=== PATIENT | male | born 1975 | race Caucasian/White ===

== ENCOUNTER 2017-08-27 00:27 | Inpatient (IN) | payer MEDICAID ==
[~2017-08-27] VITALS: Ht 182.9 cm; Wt 85.4 kg
[~2017-08-27 00:27] MED LIST: NOCURR
[2017-08-27] MEDS ORDERED: LISI1TAB11 PO (00:29)
[2017-08-27 00:58] LABS: BASOPHILS % (AUTO) 0.9 % (0.0-2.0); EOSINOPHILS % (AUTO) 2.8 % (1.0-6.0); HEMATOCRIT 22.4 % (41-53); HEMOGLOBIN 7.9 g/dL (13.5-17.5); LYMPHOCYTES # (AUTO) 1.5 K/uL (1.0-4.8); LYMPHOCYTES % (AUTO) 12.3 % (22.0-44.0); MEAN CORPUSCULAR HEMOGLOBIN 29.8 pg (26.0-34.0); MEAN CORPUSCULAR HGB CONC 35.4 G/dL (31.0-37.0); MEAN CORPUSCULAR VOLUME 84 fL (80-100); MONOCYTES # (AUTO) 0.7 K/uL (0.1-1.0); MONOCYTES % (AUTO) 5.6 % (2.0-9.0); NEUTROPHILS # (AUTO) 9.7 K/uL (1.8-7.7); NEUTROPHILS % (AUTO) 78.4 % (40.0-70.0); PLATELET COUNT (AUTO) 187 K/uL (150-450); RED BLOOD CELL COUNT(AUTO) 2.66 MIL/uL (4.50-5.90)
[2017-08-27 01:16] LABS: ALBUMIN 3.7 g/dL (3.4-5.0); BILIRUBIN,TOTAL 0.5 mg/dL (0.1-1.0); CALCIUM, TOTAL 6.1 mg/dL (8.8-10.5); POTASSIUM 3.6 mmol/L (3.5-5.1); TOTAL PROTEIN, SERUM 7.8 g/dL (6.4-8.2)
[2017-08-27] MEDS ORDERED: LORazepam 2 MG/ML VIAL IVP ONE (01:30)
[2017-08-27] MEDS ORDERED: KETOROLAC TROMETHAMINE 30 MG/ML VIAL IVP ONE (01:30)
[2017-08-27 01:36] LABS: CREATININE 38.72 mg/dL (0.60-1.30)
[2017-08-27] MEDS ORDERED: NITROGLYCERIN 2% (1 GM=INCH) PACKET TP ONE (01:45)
[2017-08-27] MEDS ORDERED: ASPIRIN 81 MG CHEWABLE TABLET PO ONE (01:45)
[2017-08-27 05:55] VITALS: BP 162/91
[2017-08-27 07:37] VITALS: BP 137/83
[2017-08-27] MEDS ORDERED: IPRATROPIUM BROMIDE 0.5 MG/2.5 ML NEB SOLUTION NEB PRN (08:45)
[2017-08-27] MEDS ORDERED: MAGNESIUM HYDROXIDE SUSPENSION 30 ML UDCUP PO PRN (08:45)
[2017-08-27] MEDS ORDERED: ZOLPIDEM TARTRATE 5 MG TABLET PO PRN (08:45)
[2017-08-27] MEDS ORDERED: ALBUTEROL SULFATE 2.5 MG/0.5 ML NEB SOLUTION NEB PRN (08:45)
[2017-08-27] MEDS ORDERED: MORPHINE SULFATE 2 MG/ML SYRINGE IVP PRN (08:45)
[2017-08-27] MEDS ORDERED: BISACODYL 10 MG RECTAL RECTAL SUPPOSITORY PR PRN (08:45)
[2017-08-27] MEDS ORDERED: ONDANSETRON HCL 4 MG/2 ML VIAL IVP PRN (08:45)
[2017-08-27] MEDS ORDERED: HYDROCODONE/ACETAMINOPHEN 5-325 MG TABLET PO PRN (08:45)
[2017-08-27] MEDS ORDERED: MORPHINE SULFATE 4 MG/ML SYRINGE IVP PRN (08:57)
[2017-08-27] MEDS ORDERED: PANTOPRAZOLE SODIUM 40 MG DR TABLET PO SCH (09:00)
[2017-08-27 09:30] LABS: BASOPHILS % (AUTO) 0.9 % (0.0-2.0); EOSINOPHILS % (AUTO) 1.5 % (1.0-6.0); HEMOGLOBIN 7.4 g/dL (13.5-17.5); LYMPHOCYTES # (AUTO) 0.9 K/uL (1.0-4.8); LYMPHOCYTES % (AUTO) 9.7 % (22.0-44.0); MEAN CORPUSCULAR HEMOGLOBIN 30.3 pg (26.0-34.0); MEAN CORPUSCULAR HGB CONC 35.9 G/dL (31.0-37.0); MEAN CORPUSCULAR VOLUME 84 fL (80-100); MONOCYTES # (AUTO) 0.4 K/uL (0.1-1.0); MONOCYTES % (AUTO) 4.3 % (2.0-9.0); NEUTROPHILS # (AUTO) 7.6 K/uL (1.8-7.7); NEUTROPHILS % (AUTO) 83.6 % (40.0-70.0); PLATELET COUNT (AUTO) 160 K/uL (150-450); RED BLOOD CELL COUNT(AUTO) 2.43 MIL/uL (4.50-5.90); RED CELL DISTRIBUTION WIDTH 12.1 % (11.5-14.5)
[2017-08-27 09:39] LABS: HEMATOCRIT 20.5 % (41-53); HEMOGLOBIN A1C 5.9 % (4.5-6.2)
[2017-08-27 10:06] LABS: ALBUMIN 3.5 g/dL (3.4-5.0); BILIRUBIN,TOTAL 0.6 mg/dL (0.1-1.0); CALCIUM, TOTAL 6.1 mg/dL (8.8-10.5); CREATINE KINASE MB 21.9 ng/mL (0-5); POTASSIUM 3.9 mmol/L (3.5-5.1); TOTAL PROTEIN, SERUM 7.4 g/dL (6.4-8.2)
[2017-08-27] MEDS: DOCUSATE SODIUM 100 MG CAPSULE PO SCH ×2 (10:12→20:12)
[2017-08-27] MEDS: LANSOPRAZOLE 30 MG SOLUBLE TABLET PO SCH (10:12)
[2017-08-27] MEDS: ASPIRIN 81 MG CHEWABLE TABLET PO SCH (10:12)
[2017-08-27 10:28] LABS: CKMB RELATIVE INDEX 0.7 % (0.0-4.0); CREATININE 39.32 mg/dL (0.60-1.30)
[2017-08-27 10:55] LABS: % IRON SATURATION 73.9 % (30-44)
[2017-08-27 11:09] VITALS: BP 167/89
[2017-08-27 11:12] VITALS: BP 152/92
[2017-08-27] MEDS: NITROGLYCERIN 2% (1 GM=INCH) PACKET TP SCH ×2 (11:39→18:27)
[2017-08-27 13:24] LABS: CREATININE,URINE RANDOM 129.3 mg/dL (30.0-125.0)
[2017-08-27 15:36] VITALS: BP 152/93
[2017-08-27] MEDS: HEPARIN SODIUM,PORCINE 5,000 UNITS/ML VIAL SQ SCH (16:00)
[2017-08-27] MEDS: HydrALAZINE HCL 50 MG TABLET PO SCH ×2 (16:55→20:12)
[2017-08-27] MEDS: SODIUM BICARBONATE 650 MG TABLET PO SCH ×2 (16:55→20:12)
[2017-08-27 19:31] VITALS: BP 152/93
[2017-08-28] VITALS (18 sets, daily range): BP systolic 16–193; BP diastolic 84–107
[2017-08-28] MEDS: NITROGLYCERIN 2% (1 GM=INCH) PACKET TP SCH ×4 (00:08→18:22)
[2017-08-28 07:21] LABS: CHOL/HDL RATIO 4.5 (4.2-7.3)
[2017-08-28] MEDS: HEPARIN SODIUM,PORCINE 5,000 UNITS/ML VIAL SQ SCH ×4 (08:00→23:36)
[2017-08-28] MEDS ORDERED: HEPARIN SODIUM,PORCINE 1,000 UNITS/ML 10 ML VIAL ONE (08:54)
[2017-08-28] MEDS ORDERED: HEPARIN SODIUM 1000 UNITS/NS 500 ML ONE (08:54)
[2017-08-28] MEDS ORDERED: LIDOCAINE HCL/PF 1% 30 ML VIAL ONE (08:55)
[2017-08-28] MEDS: ASPIRIN 81 MG CHEWABLE TABLET PO SCH (09:00)
[2017-08-28 09:16] LABS: PROTHROMBIN TIME 10.8 SEC (9.4-11.6)
[2017-08-28] MEDS: DOCUSATE SODIUM 100 MG CAPSULE PO SCH ×2 (09:42→21:18)
[2017-08-28] MEDS: SODIUM BICARBONATE 650 MG TABLET PO SCH ×3 (09:42→21:18)
[2017-08-28] MEDS: LANSOPRAZOLE 30 MG SOLUBLE TABLET PO SCH (09:42)
[2017-08-28] MEDS: HydrALAZINE HCL 50 MG TABLET PO SCH ×3 (09:42→21:18)
[2017-08-28 10:02] LABS: BASOPHILS % (AUTO) 0.3 % (0.0-2.0); EOSINOPHILS % (AUTO) 1.4 % (1.0-6.0); HEMOGLOBIN 7.2 g/dL (13.5-17.5); LYMPHOCYTES # (AUTO) 0.7 K/uL (1.0-4.8); LYMPHOCYTES % (AUTO) 5.7 % (22.0-44.0); MEAN CORPUSCULAR HEMOGLOBIN 30.2 pg (26.0-34.0); MEAN CORPUSCULAR HGB CONC 35.6 G/dL (31.0-37.0); MEAN CORPUSCULAR VOLUME 85 fL (80-100); MONOCYTES # (AUTO) 0.5 K/uL (0.1-1.0); MONOCYTES % (AUTO) 3.6 % (2.0-9.0); NEUTROPHILS # (AUTO) 11.5 K/uL (1.8-7.7); PLATELET COUNT (AUTO) 150 K/uL (150-450); RED BLOOD CELL COUNT(AUTO) 2.39 MIL/uL (4.50-5.90); RED CELL DISTRIBUTION WIDTH 11.8 % (11.5-14.5)
[2017-08-28 10:04] LABS: HEMATOCRIT 20.3 % (41-53)
[2017-08-28] MEDS ORDERED: FentaNYL CITRATE-PF 100 MCG/2 ML VIAL ONE (10:35)
[2017-08-28] MEDS ORDERED: MIDAZOLAM HCL 2 MG/2 ML VIAL ONE ×2 (10:35→11:51)
[2017-08-28] MEDS ORDERED: CeFAZolin 1 GM/DEXTROSE 50 ML IV ONE ×2 (10:35→11:42)
[2017-08-28] MEDS ORDERED: FLUMAZENIL 0.1 MG/ML 5 ML VIAL IVP ONE (10:35)
[2017-08-28] MEDS ORDERED: NALOXONE HCL 0.4 MG/ML VIAL ONE (10:35)
[2017-08-28 10:55] LABS: % IRON SATURATION 58.9 % (30-44)
[2017-08-28] MEDS ORDERED: SODIUM CHLORIDE 0.9% 2,000 ML IV ONE (11:28)
[2017-08-28] MEDS ORDERED: MIDAZOLAM HCL 2 MG/2 ML VIAL IVP ONE (11:53)
[2017-08-28] MEDS ORDERED: FentaNYL CITRATE-PF 100 MCG/2 ML VIAL IVP ONE (11:53)
[2017-08-28 12:22] LABS: CALCIUM, TOTAL 5.9 mg/dL (8.8-10.5)
[2017-08-28 12:23] LABS: CREATININE 41.33 mg/dL (0.60-1.30)
[2017-08-28] MEDS: CloNIDine HCL 0.1 MG TABLET PO PRN (15:52)
[2017-08-28] MEDS ORDERED: SODIUM CHLORIDE 0.9% 250 ML IV ONE (16:12)
[2017-08-28] MEDS ORDERED: HEPARIN SODIUM,PORCINE 1,000 UNITS/ML VIAL IVP ONE ×3 (17:31→17:45)
[2017-08-28] MEDS ORDERED: AmLODIPine BESYLATE 5 MG TABLET PO SCH (18:00)
[2017-08-28] MEDS ORDERED: AmLODIPine BESYLATE 5 MG TABLET PO ONE (18:00)
[2017-08-28] MEDS: ACETAMINOPHEN 325 MG TABLET PO PRN (18:22)
[2017-08-29] MEDS: NITROGLYCERIN 2% (1 GM=INCH) PACKET TP SCH ×2 (00:34→05:58)
[2017-08-29 00:47] VITALS: BP 155/77
[2017-08-29 04:34] VITALS: BP 155/92
[2017-08-29 06:09] LABS: BASOPHILS % (AUTO) 0.9 % (0.0-2.0); EOSINOPHILS % (AUTO) 1.3 % (1.0-6.0); HEMATOCRIT 21.8 % (41-53); HEMOGLOBIN 7.9 g/dL (13.5-17.5); LYMPHOCYTES # (AUTO) 0.6 K/uL (1.0-4.8); LYMPHOCYTES % (AUTO) 7.3 % (22.0-44.0); MEAN CORPUSCULAR HEMOGLOBIN 30.5 pg (26.0-34.0); MEAN CORPUSCULAR HGB CONC 36.1 G/dL (31.0-37.0); MEAN CORPUSCULAR VOLUME 84 fL (80-100); MONOCYTES # (AUTO) 0.6 K/uL (0.1-1.0); MONOCYTES % (AUTO) 7.2 % (2.0-9.0); NEUTROPHILS # (AUTO) 7.4 K/uL (1.8-7.7); NEUTROPHILS % (AUTO) 83.3 % (40.0-70.0); PLATELET COUNT (AUTO) 138 K/uL (150-450); RED BLOOD CELL COUNT(AUTO) 2.58 MIL/uL (4.50-5.90); RED CELL DISTRIBUTION WIDTH 12.6 % (11.5-14.5)
[2017-08-29 06:22] LABS: BILIRUBIN,TOTAL 0.5 mg/dL (0.1-1.0); CALCIUM, TOTAL 7.1 mg/dL (8.8-10.5); POTASSIUM 3.3 mmol/L (3.5-5.1); TOTAL PROTEIN, SERUM 6.9 g/dL (6.4-8.2)
[2017-08-29 07:04] LABS: ALPHA-1 (IFE & PEP) 0.3 g/dL (0.0-0.4); IGM (IMMUNOFIXATION) 58 mg/dL (20-172)
[2017-08-29 07:18] LABS: CREATININE 31.61 mg/dL (0.60-1.30)
[2017-08-29 07:47] VITALS: BP 154/121
[2017-08-29] MEDS: ASPIRIN 81 MG CHEWABLE TABLET PO SCH (07:48)
[2017-08-29] MEDS: HEPARIN SODIUM,PORCINE 5,000 UNITS/ML VIAL SQ SCH ×3 (07:48→23:07)
[2017-08-29] MEDS: LANSOPRAZOLE 30 MG SOLUBLE TABLET PO SCH (07:56)
[2017-08-29] MEDS: DOCUSATE SODIUM 100 MG CAPSULE PO SCH ×2 (07:56→21:00)
[2017-08-29] MEDS: HydrALAZINE HCL 50 MG TABLET PO SCH ×3 (07:56→21:16)
[2017-08-29] MEDS: SODIUM BICARBONATE 650 MG TABLET PO SCH ×3 (07:57→21:16)
[2017-08-29] MEDS: AmLODIPine BESYLATE 5 MG TABLET PO SCH (07:57)
[2017-08-29 11:41] VITALS: BP 165/98
[2017-08-29] MEDS: CloNIDine HCL 0.1 MG TABLET PO PRN (11:48)
[2017-08-29 15:06] VITALS: BP 154/96
[2017-08-29] MEDS: CALCITRIOL 1 MCG/ML AMP IVP SCH (16:30)
[2017-08-29] MEDS ORDERED: HEPARIN SODIUM,PORCINE 1,000 UNITS/ML VIAL IVP ONE (17:31)
[2017-08-29 20:09] VITALS: BP 149/78
[2017-08-30 00:08] VITALS: BP 147/92
[2017-08-30 04:22] VITALS: BP 143/81
[2017-08-30 07:05] LABS: BASOPHILS % (AUTO) 1.2 % (0.0-2.0); EOSINOPHILS % (AUTO) 2.8 % (1.0-6.0); HEMATOCRIT 21.3 % (41-53); HEMOGLOBIN 7.7 g/dL (13.5-17.5); LYMPHOCYTES # (AUTO) 0.8 K/uL (1.0-4.8); LYMPHOCYTES % (AUTO) 9.3 % (22.0-44.0); MEAN CORPUSCULAR HEMOGLOBIN 30.5 pg (26.0-34.0); MEAN CORPUSCULAR VOLUME 85 fL (80-100); MONOCYTES # (AUTO) 0.7 K/uL (0.1-1.0); MONOCYTES % (AUTO) 8.4 % (2.0-9.0); NEUTROPHILS # (AUTO) 6.9 K/uL (1.8-7.7); NEUTROPHILS % (AUTO) 78.3 % (40.0-70.0); PLATELET COUNT (AUTO) 149 K/uL (150-450); RED BLOOD CELL COUNT(AUTO) 2.51 MIL/uL (4.50-5.90); RED CELL DISTRIBUTION WIDTH 12.4 % (11.5-14.5)
[2017-08-30 07:29] VITALS: BP 153/83
[2017-08-30 07:53] LABS: ALBUMIN 2.8 g/dL (3.4-5.0); BILIRUBIN,TOTAL 0.4 mg/dL (0.1-1.0); POTASSIUM 3.6 mmol/L (3.5-5.1); TOTAL PROTEIN, SERUM 6.4 g/dL (6.4-8.2)
[2017-08-30] MEDS: HEPARIN SODIUM,PORCINE 5,000 UNITS/ML VIAL SQ SCH ×3 (08:00→23:41)
[2017-08-30 08:20] LABS: CREATININE 22.95 mg/dL (0.60-1.30)
[2017-08-30] MEDS: EPOETIN ALFA 10,000 UNITS/ML VIAL SQ SCH (09:00)
[2017-08-30] MEDS: DOCUSATE SODIUM 100 MG CAPSULE PO SCH ×2 (09:00→20:27)
[2017-08-30] MEDS ORDERED: MIDAZOLAM HCL 2 MG/2 ML VIAL ONE (09:23)
[2017-08-30] MEDS ORDERED: FentaNYL CITRATE-PF 100 MCG/2 ML VIAL ONE (09:23)
[2017-08-30] MEDS ORDERED: LIDOCAINE HCL/PF 1% 30 ML VIAL ONE (09:23)
[2017-08-30] MEDS ORDERED: GELATIN SPONGE,ABSORBABLE 12-7 MM TP ONE (09:23)
[2017-08-30] MEDS ORDERED: FentaNYL CITRATE-PF 100 MCG/2 ML VIAL IVP ONE (10:07)
[2017-08-30] MEDS ORDERED: MIDAZOLAM HCL 2 MG/2 ML VIAL IVP ONE (10:08)
[2017-08-30 10:57] VITALS: BP 154/95
[2017-08-30] MEDS: HydrALAZINE HCL 50 MG TABLET PO SCH ×3 (11:39→20:27)
[2017-08-30] MEDS: AmLODIPine BESYLATE 5 MG TABLET PO SCH (11:40)
[2017-08-30] MEDS: ASPIRIN 81 MG CHEWABLE TABLET PO SCH (11:42)
[2017-08-30] MEDS: CALCITRIOL 1 MCG/ML AMP IVP SCH (11:42)
[2017-08-30] MEDS: LANSOPRAZOLE 30 MG SOLUBLE TABLET PO SCH (11:42)
[2017-08-30] MEDS: SODIUM BICARBONATE 650 MG TABLET PO SCH ×3 (11:43→20:26)
[2017-08-30 19:19] VITALS: BP 149/97
[2017-08-30 23:22] VITALS: BP 155/89
[2017-08-30] MEDS: ACETAMINOPHEN 325 MG TABLET PO PRN (23:41)
[2017-08-31 04:12] VITALS: BP 128/77
[2017-08-31 05:31] LABS: HIV 1-2 SCREEN 4TH GEN W/RFLX Non Reactive (Non Reactive)
[2017-08-31 06:18] LABS: ALBUMIN URINE (ELP) 65.1 %
[2017-08-31 07:33] LABS: BASOPHILS % (AUTO) 1.4 % (0.0-2.0); EOSINOPHILS % (AUTO) 4.4 % (1.0-6.0); HEMATOCRIT 21.3 % (41-53); HEMOGLOBIN 7.6 g/dL (13.5-17.5); LYMPHOCYTES # (AUTO) 1.1 K/uL (1.0-4.8); LYMPHOCYTES % (AUTO) 12.9 % (22.0-44.0); MEAN CORPUSCULAR HEMOGLOBIN 30.4 pg (26.0-34.0); MEAN CORPUSCULAR HGB CONC 35.9 G/dL (31.0-37.0); MEAN CORPUSCULAR VOLUME 85 fL (80-100); MONOCYTES # (AUTO) 0.7 K/uL (0.1-1.0); MONOCYTES % (AUTO) 7.8 % (2.0-9.0); NEUTROPHILS # (AUTO) 6.5 K/uL (1.8-7.7); NEUTROPHILS % (AUTO) 73.5 % (40.0-70.0); PLATELET COUNT (AUTO) 141 K/uL (150-450); RED BLOOD CELL COUNT(AUTO) 2.51 MIL/uL (4.50-5.90); RED CELL DISTRIBUTION WIDTH 12.1 % (11.5-14.5)
[2017-08-31 07:37] VITALS: BP 151/87
[2017-08-31 07:49] LABS: ALBUMIN 2.6 g/dL (3.4-5.0); BILIRUBIN,TOTAL 0.3 mg/dL (0.1-1.0); CALCIUM, TOTAL 7.2 mg/dL (8.8-10.5); CREATININE 16.14 mg/dL (0.60-1.30); POTASSIUM 3.9 mmol/L (3.5-5.1); TOTAL PROTEIN, SERUM 6.3 g/dL (6.4-8.2)
[2017-08-31] MEDS: HydrALAZINE HCL 50 MG TABLET PO SCH ×3 (08:17→20:53)
[2017-08-31] MEDS: LANSOPRAZOLE 30 MG SOLUBLE TABLET PO SCH (08:17)
[2017-08-31] MEDS: AmLODIPine BESYLATE 5 MG TABLET PO SCH (08:17)
[2017-08-31] MEDS: HEPARIN SODIUM,PORCINE 5,000 UNITS/ML VIAL SQ SCH ×2 (08:18→16:11)
[2017-08-31] MEDS: ASPIRIN 81 MG CHEWABLE TABLET PO SCH (08:18)
[2017-08-31] MEDS: DOCUSATE SODIUM 100 MG CAPSULE PO SCH ×2 (08:19→20:53)
[2017-08-31] MEDS: SODIUM BICARBONATE 650 MG TABLET PO SCH (08:19)
[2017-08-31] MEDS: CALCITRIOL 1 MCG/ML AMP IVP SCH (08:19)
[2017-08-31 11:34] VITALS: BP 131/98
[2017-08-31] MEDS: VITAMIN B COMP/VIT C/FOLIC ACID CAPSULE PO SCH (14:48)
[2017-08-31] MEDS: CALCITRIOL 0.25 MCG CAPSULE PO SCH (15:45)
[2017-08-31 16:17] VITALS: BP 154/99
[2017-08-31] MEDS ORDERED: HEPARIN SODIUM,PORCINE 1,000 UNITS/ML VIAL IVP ONE (17:30)
[2017-08-31 19:35] VITALS: BP 157/97
[2017-08-31 23:56] VITALS: BP 145/80
[2017-09-01] MEDS: HEPARIN SODIUM,PORCINE 5,000 UNITS/ML VIAL SQ SCH ×3 (00:16→16:56)
[2017-09-01 04:41] VITALS: BP 141/83
[2017-09-01 06:17] LABS: BASOPHILS % (AUTO) 0.9 % (0.0-2.0); EOSINOPHILS % (AUTO) 6.1 % (1.0-6.0); HEMOGLOBIN 7.7 g/dL (13.5-17.5); LYMPHOCYTES # (AUTO) 1.1 K/uL (1.0-4.8); LYMPHOCYTES % (AUTO) 12.8 % (22.0-44.0); MEAN CORPUSCULAR HEMOGLOBIN 30.8 pg (26.0-34.0); MEAN CORPUSCULAR HGB CONC 36.5 G/dL (31.0-37.0); MEAN CORPUSCULAR VOLUME 84 fL (80-100); MONOCYTES # (AUTO) 0.8 K/uL (0.1-1.0); MONOCYTES % (AUTO) 8.7 % (2.0-9.0); NEUTROPHILS # (AUTO) 6.4 K/uL (1.8-7.7); NEUTROPHILS % (AUTO) 71.5 % (40.0-70.0); PLATELET COUNT (AUTO) 162 K/uL (150-450); RED BLOOD CELL COUNT(AUTO) 2.49 MIL/uL (4.50-5.90)
[2017-09-01 06:58] LABS: ALANINE AMINOTRANSFERASE 25 U/L (12-78); ALBUMIN 2.6 g/dL (3.4-5.0); ALKALINE PHOSPHATASE 57 U/L (46-116); ANION GAP 12 mmol/L (8-16); ASPARTATE AMINOTRANSFERASE 28 U/L (15-37); BILIRUBIN,TOTAL 0.3 mg/dL (0.1-1.0); CARBON DIOXIDE 25 mmol/L (22-29); CHLORIDE 95 mmol/L (98-107); CREATINE KINASE MB 2.9 ng/mL (0-5); CREATINE KINASE, TOTAL 424 U/L (39-308); CREATININE 18.86 mg/dL (0.60-1.30); GLOMERULAR FILTR. RATE CALC 3 mL/min (>60); GLUCOSE,RANDOM 98 mg/dL (70-110); POTASSIUM 4.1 mmol/L (3.5-5.1); SODIUM SERUM 132 mmol/L (136-145); TOTAL PROTEIN, SERUM 6.1 g/dL (6.4-8.2); UREA NITROGEN, BLOOD 79 mg/dL (7-18)
[2017-09-01 07:09] VITALS: BP 134/86
[2017-09-01] MEDS: DOCUSATE SODIUM 100 MG CAPSULE PO SCH ×2 (09:00→20:16)
[2017-09-01 12:00] VITALS: BP 165/95
[2017-09-01] MEDS: AmLODIPine BESYLATE 5 MG TABLET PO SCH (12:11)
[2017-09-01] MEDS: VITAMIN B COMP/VIT C/FOLIC ACID CAPSULE PO SCH (12:11)
[2017-09-01] MEDS: HydrALAZINE HCL 50 MG TABLET PO SCH ×3 (12:11→20:16)
[2017-09-01] MEDS: LANSOPRAZOLE 30 MG SOLUBLE TABLET PO SCH (12:12)
[2017-09-01] MEDS: CALCITRIOL 0.25 MCG CAPSULE PO SCH (12:12)
[2017-09-01] MEDS: ASPIRIN 81 MG CHEWABLE TABLET PO SCH (12:12)
[2017-09-01] MEDS: EPOETIN ALFA 10,000 UNITS/ML VIAL SQ SCH (12:13)
[2017-09-01 15:27] VITALS: BP 126/82
[2017-09-01] MEDS: ACETAMINOPHEN 325 MG TABLET PO PRN (16:55)
[2017-09-01 19:33] VITALS: BP 136/79
[2017-09-01] MEDS ORDERED: HEPARIN SODIUM,PORCINE 1,000 UNITS/ML VIAL IVP ONE (22:00)
[2017-09-02] VITALS (15 sets, daily range): BP systolic 129–147; BP diastolic 75–91
[2017-09-02] MEDS: HEPARIN SODIUM,PORCINE 5,000 UNITS/ML VIAL SQ SCH ×4 (00:03→23:31)
[2017-09-02 06:39] LABS: ALBUMIN 2.7 g/dL (3.4-5.0); BILIRUBIN,TOTAL 0.3 mg/dL (0.1-1.0); CALCIUM, TOTAL 7.3 mg/dL (8.8-10.5); CREATININE 11.88 mg/dL (0.60-1.30); POTASSIUM 3.9 mmol/L (3.5-5.1); TOTAL PROTEIN, SERUM 6.1 g/dL (6.4-8.2)
[2017-09-02 06:56] LABS: BASOPHILS % (AUTO) 1.1 % (0.0-2.0); EOSINOPHILS % (AUTO) 8.1 % (1.0-6.0); HEMOGLOBIN 7.2 g/dL (13.5-17.5); LYMPHOCYTES % (AUTO) 14.2 % (22.0-44.0); MEAN CORPUSCULAR HEMOGLOBIN 30.4 pg (26.0-34.0); MEAN CORPUSCULAR HGB CONC 36.1 G/dL (31.0-37.0); MEAN CORPUSCULAR VOLUME 84 fL (80-100); MONOCYTES # (AUTO) 0.7 K/uL (0.1-1.0); NEUTROPHILS # (AUTO) 4.7 K/uL (1.8-7.7); NEUTROPHILS % (AUTO) 66.6 % (40.0-70.0); PLATELET COUNT (AUTO) 171 K/uL (150-450); RED BLOOD CELL COUNT(AUTO) 2.38 MIL/uL (4.50-5.90)
[2017-09-02] MEDS: LANSOPRAZOLE 30 MG SOLUBLE TABLET PO SCH (08:49)
[2017-09-02] MEDS: HydrALAZINE HCL 50 MG TABLET PO SCH ×3 (08:49→20:12)
[2017-09-02] MEDS: AmLODIPine BESYLATE 5 MG TABLET PO SCH (08:50)
[2017-09-02] MEDS: VITAMIN B COMP/VIT C/FOLIC ACID CAPSULE PO SCH (08:50)
[2017-09-02] MEDS: ASPIRIN 81 MG CHEWABLE TABLET PO SCH (08:50)
[2017-09-02] MEDS: CALCITRIOL 0.25 MCG CAPSULE PO SCH (08:50)
[2017-09-02] MEDS: DOCUSATE SODIUM 100 MG CAPSULE PO SCH ×2 (08:50→20:12)
[2017-09-02] MEDS ORDERED: SODIUM CHLORIDE 0.9% 250 ML IV ONE (09:02)
[2017-09-03 05:00] VITALS: BP 137/79
[2017-09-03 06:33] LABS: BASOPHILS % (AUTO) 1.2 % (0.0-2.0); EOSINOPHILS % (AUTO) 7.3 % (1.0-6.0); HEMATOCRIT 22.5 % (41-53); HEMOGLOBIN 8.1 g/dL (13.5-17.5); LYMPHOCYTES # (AUTO) 1.1 K/uL (1.0-4.8); LYMPHOCYTES % (AUTO) 13.9 % (22.0-44.0); MEAN CORPUSCULAR HEMOGLOBIN 30.2 pg (26.0-34.0); MEAN CORPUSCULAR HGB CONC 35.9 G/dL (31.0-37.0); MEAN CORPUSCULAR VOLUME 84 fL (80-100); MONOCYTES # (AUTO) 0.7 K/uL (0.1-1.0); MONOCYTES % (AUTO) 9.1 % (2.0-9.0); NEUTROPHILS # (AUTO) 5.2 K/uL (1.8-7.7); NEUTROPHILS % (AUTO) 68.5 % (40.0-70.0); PLATELET COUNT (AUTO) 191 K/uL (150-450); RED BLOOD CELL COUNT(AUTO) 2.67 MIL/uL (4.50-5.90); RED CELL DISTRIBUTION WIDTH 12.5 % (11.5-14.5)
[2017-09-03 07:32] VITALS: BP 135/88
[2017-09-03 07:52] LABS: ALBUMIN 2.7 g/dL (3.4-5.0); BILIRUBIN,TOTAL 0.3 mg/dL (0.1-1.0); CALCIUM, TOTAL 7.1 mg/dL (8.8-10.5); CREATININE 14.87 mg/dL (0.60-1.30); POTASSIUM 4.1 mmol/L (3.5-5.1)
[2017-09-03] MEDS: HEPARIN SODIUM,PORCINE 5,000 UNITS/ML VIAL SQ SCH (08:00)
[2017-09-03] MEDS: VITAMIN B COMP/VIT C/FOLIC ACID CAPSULE PO SCH (08:32)
[2017-09-03] MEDS: LANSOPRAZOLE 30 MG SOLUBLE TABLET PO SCH (08:32)
[2017-09-03] MEDS: HydrALAZINE HCL 50 MG TABLET PO SCH (08:32)
[2017-09-03] MEDS: CALCITRIOL 0.25 MCG CAPSULE PO SCH (08:32)
[2017-09-03] MEDS: AmLODIPine BESYLATE 5 MG TABLET PO SCH (08:32)
[2017-09-03] MEDS: ASPIRIN 81 MG CHEWABLE TABLET PO SCH (08:33)
[2017-09-03] MEDS: DOCUSATE SODIUM 100 MG CAPSULE PO SCH (08:36)
[2017-09-03] MEDS ORDERED: ASPI81TA39 PO (10:43)
[2017-09-03] MEDS ORDERED: PANT20TA PO (10:43)
[2017-09-03] MEDS ORDERED: FOLI1CAP2 PO (10:44)
[2017-09-03 10:59] VITALS: BP 145/91
== END 2017-09-03 13:50 | disposition home or self-care (01) | DRG 469 ==
LOC: EMS 00:27 → 5S 03:14
PROVIDERS: ADMIT Hospitalist; ATTEND Hospitalist
PROC: 0JH63XZ Insertion of Tunneled Vascular Access Device into Chest Subcutaneous Tissue and Fascia, Percutaneous Approach (ICD-10-PCS; 2017-08-28)
PROC: 02HV33Z Insertion of Infusion Device into Superior Vena Cava, Percutaneous Approach (ICD-10-PCS; 2017-08-28)
PROC: B548ZZA Ultrasonography of Superior Vena Cava, Guidance (ICD-10-PCS; 2017-08-28)
PROC: 30233N1 Transfusion of Nonautologous Red Blood Cells into Peripheral Vein, Percutaneous Approach (ICD-10-PCS; 2017-08-28)
PROC: 5A1D70Z Performance of Urinary Filtration, Intermittent, Less than 6 Hours Per Day (ICD-10-PCS; 2017-08-28)
PROC: 5A1D70Z Performance of Urinary Filtration, Intermittent, Less than 6 Hours Per Day (ICD-10-PCS; 2017-08-29)
PROC: 0TB13ZX Excision of Left Kidney, Percutaneous Approach, Diagnostic (ICD-10-PCS; principal; 2017-08-30)
PROC: 5A1D70Z Performance of Urinary Filtration, Intermittent, Less than 6 Hours Per Day (ICD-10-PCS; 2017-08-30)
PROC: 5A1D70Z Performance of Urinary Filtration, Intermittent, Less than 6 Hours Per Day (ICD-10-PCS; 2017-09-01)
DX: N17.9 Acute kidney failure, unspecified (principal); I50.33 Acute on chronic diastolic (congestive) heart failure; E83.51 Hypocalcemia; I27.20 Pulmonary hypertension, unspecified; I13.2 Hypertensive heart and chronic kidney disease with heart failure and with stage 5 chronic kidney disease, or end stage renal disease; R34 Anuria and oliguria; N02.2 Recurrent and persistent hematuria with diffuse membranous glomerulonephritis; N18.6 End stage renal disease; D64.9 Anemia, unspecified; D72.829 Elevated white blood cell count, unspecified; F41.9 Anxiety disorder, unspecified; Z99.2 Dependence on renal dialysis; Z82.49 Family history of ischemic heart disease and other diseases of the circulatory system
CPT/HCPCS: 36245; 36561; 50200; 76000; 76770; 76937; 82306; 82570; 82784; 83036; 83516; 83520; 83540; 83550; 83970; 84155; 84156; 84165; 84166; 84300; 84443; 84540; 86038; 86160; 86225; 86334; 86803; 86850; 86900; 86901; 86920; 87070; 87205; 87340; 87389; 88300; 90935; 93005; 93306; 96374; 96375; 99285; J0636; J0690; J0885; J1644; J1885; J2060; J2250; J2310; J3010; J3490; J7030; J7050; P9016

== ENCOUNTER 2017-10-25 19:09 | Inpatient (IN) | payer SELFPAY ==
[~2017-10-25] VITALS: Ht 182.9 cm; Wt 78.4 kg
[~2017-10-25 19:09] MED LIST changes: +ASPI81TA39 PO; +FOLI1CAP2 PO; +LISI1TAB11 PO; -NOCURR; +PANT20TA PO
[2017-10-25] MEDS ORDERED: 0.9% SODIUM CHLORIDE 10 ML SYRINGE IVP PRN (21:45)
[2017-10-25 22:06] LABS: BASOPHILS % (AUTO) 1.1 % (0.0-2.0); EOSINOPHILS % (AUTO) 2.1 % (1.0-6.0); HEMATOCRIT 37.1 % (41-53); LYMPHOCYTES # (AUTO) 1.2 K/uL (1.0-4.8); LYMPHOCYTES % (AUTO) 11.7 % (22.0-44.0); MEAN CORPUSCULAR HEMOGLOBIN 31.7 pg (26.0-34.0); MEAN CORPUSCULAR HGB CONC 34.9 G/dL (31.0-37.0); MEAN CORPUSCULAR VOLUME 91 fL (80-100); MONOCYTES # (AUTO) 0.9 K/uL (0.1-1.0); MONOCYTES % (AUTO) 8.7 % (2.0-9.0); NEUTROPHILS # (AUTO) 7.8 K/uL (1.8-7.7); NEUTROPHILS % (AUTO) 76.4 % (40.0-70.0); PLATELET COUNT (AUTO) 208 K/uL (150-450); RED CELL DISTRIBUTION WIDTH 15.8 % (11.5-14.5)
[2017-10-25 22:15] LABS: PROTHROMBIN TIME 10.4 SEC (9.4-11.6)
[2017-10-25] MEDS ORDERED: ACETAMINOPHEN 325 MG TABLET PO PRN (22:15)
[2017-10-25] MEDS ORDERED: BISACODYL 10 MG RECTAL RECTAL SUPPOSITORY PR PRN (22:15)
[2017-10-25 22:16] LABS: CALCIUM, TOTAL 9.3 mg/dL (8.8-10.5); CREATININE 9.93 mg/dL (0.60-1.30); POTASSIUM 4.2 mmol/L (3.5-5.1)
[2017-10-25] MEDS ORDERED: VANCOMYCIN HCL 1.5 GM in DEXTROSE 5%-WATER 250 ML IV ONE (22:30)
[2017-10-25] MEDS ORDERED: VANCOMYCIN HCL 1 GM/D5% WATER 200 ML IV PRN (22:30)
[2017-10-25 22:49] LABS: ALBUMIN 3.9 g/dL (3.4-5.0); BILIRUBIN,TOTAL 0.5 mg/dL (0.1-1.0); TOTAL PROTEIN, SERUM 8.1 g/dL (6.4-8.2)
[2017-10-25 22:52] LABS: LACTIC ACID 1.1 mmol/L (0.4-2.0)
[2017-10-25 23:46] VITALS: BP 145/99
[2017-10-26] VITALS (7 sets, daily range): BP systolic 103–165; BP diastolic 59–107
[2017-10-26] MEDS ORDERED: CALC0.253 PO (01:02)
[2017-10-26] MEDS ORDERED: AMLO-511 PO (01:03)
[2017-10-26] MEDS ORDERED: FOLI1CAP24 PO (01:03)
[2017-10-26 02:00] LABS: APPEARANCE,URINE CLEAR (CLEAR); BILIRUBIN,URINE NEGATIVE (NEGATIVE); GLUCOSE, URINE (UA) 100 mg/dL (NEGATIVE); KETONES,URINE NEGATIVE (NEGATIVE); LEUKOCYTE ESTERASE ,URINE NEGATIVE (NEGATIVE); NITRATE,URINE NEGATIVE (NEGATIVE); OCCULT BLOOD,URINE TRACE (NEGATIVE); PH,URINE 7.5 (5.0-8.0); PROTEIN,URINE SEE CONFIRM (NEGATIVE); UROBILINOGEN,URINE 0.2 mg/dL (<=1.0)
[2017-10-26 02:18] LABS: BACTERIA,URINE None Seen /HPF (None Seen); RBC,URINE 0-2 /HPF (0-2); SULFOSALICYLIC ACID,URINE 2+ (Negative); WBC,URINE None Seen /HPF (0-5); YEAST,URINE None Seen /HPF (None Seen)
[2017-10-26 06:28] LABS: BASOPHILS % (AUTO) 1.5 % (0.0-2.0); EOSINOPHILS % (AUTO) 5.3 % (1.0-6.0); HEMATOCRIT 33.7 % (41-53); LYMPHOCYTES % (AUTO) 21.3 % (22.0-44.0); MEAN CORPUSCULAR HEMOGLOBIN 32.2 pg (26.0-34.0); MEAN CORPUSCULAR HGB CONC 35.6 G/dL (31.0-37.0); MEAN CORPUSCULAR VOLUME 91 fL (80-100); MONOCYTES # (AUTO) 1.2 K/uL (0.1-1.0); MONOCYTES % (AUTO) 12.9 % (2.0-9.0); NEUTROPHILS # (AUTO) 5.5 K/uL (1.8-7.7); PLATELET COUNT (AUTO) 200 K/uL (150-450); RED BLOOD CELL COUNT(AUTO) 3.72 MIL/uL (4.50-5.90); RED CELL DISTRIBUTION WIDTH 15.3 % (11.5-14.5)
[2017-10-26 06:42] LABS: CALCIUM, TOTAL 9.1 mg/dL (8.8-10.5); CREATININE 11.26 mg/dL (0.60-1.30); POTASSIUM 3.7 mmol/L (3.5-5.1)
[2017-10-26] MEDS: PANTOPRAZOLE SODIUM 40 MG DR TABLET PO SCH (08:54)
[2017-10-26] MEDS: DOCUSATE SODIUM 100 MG CAPSULE PO SCH ×2 (08:54→20:49)
[2017-10-26] MEDS ORDERED: CloNIDine HCL 0.1 MG TABLET PO PRN (12:00)
[2017-10-26] MEDS: LISINOPRIL 20 MG TABLET PO SCH ×2 (12:19→20:49)
[2017-10-27 04:03] VITALS: BP 118/69
[2017-10-27 07:40] VITALS: BP 125/77
[2017-10-27] MEDS: PANTOPRAZOLE SODIUM 40 MG DR TABLET PO SCH (08:12)
[2017-10-27] MEDS: DOCUSATE SODIUM 100 MG CAPSULE PO SCH ×2 (08:12→19:54)
[2017-10-27] MEDS: LISINOPRIL 20 MG TABLET PO SCH (09:00)
[2017-10-27] MEDS ORDERED: LIDOCAINE HCL/PF 1% 30 ML VIAL ONE (14:08)
[2017-10-27 15:50] VITALS: BP 118/75
[2017-10-27] MEDS ORDERED: HEPARIN SODIUM,PORCINE 1,000 UNITS/ML VIAL IVP ONE (17:21)
[2017-10-27] MEDS ORDERED: HEPARIN SODIUM,PORCINE 5,000 UNITS/ML VIAL SQ ONE (17:21)
[2017-10-27 19:54] VITALS: BP 131/75
[2017-10-27] MEDS: OxyCODONE HCL/ACETAMINOPHEN 5-325 MG TABLET PO PRN (19:54)
[2017-10-27 23:40] VITALS: BP 109/64
[2017-10-28 05:25] VITALS: BP 109/66
[2017-10-28 08:05] VITALS: BP 113/66
[2017-10-28] MEDS: PANTOPRAZOLE SODIUM 40 MG DR TABLET PO SCH (08:10)
[2017-10-28] MEDS: DOCUSATE SODIUM 100 MG CAPSULE PO SCH ×2 (08:10→19:50)
[2017-10-28 11:32] VITALS: BP_SYST 100; BP_SYST 121; BP_DIAS 69; BP_DIAS 73
[2017-10-28] MEDS: LISINOPRIL 20 MG TABLET PO SCH (11:52)
[2017-10-28 15:46] VITALS: BP 126/77
[2017-10-28 20:09] VITALS: BP 128/78
[2017-10-28 23:08] VITALS: BP 134/77
[2017-10-29 04:30] VITALS: BP 128/77
[2017-10-29 06:41] LABS: BASOPHILS % (AUTO) 1.4 % (0.0-2.0); EOSINOPHILS % (AUTO) 8.1 % (1.0-6.0); HEMOGLOBIN 11.4 g/dL (13.5-17.5); LYMPHOCYTES % (AUTO) 22.3 % (22.0-44.0); MEAN CORPUSCULAR HEMOGLOBIN 31.6 pg (26.0-34.0); MEAN CORPUSCULAR HGB CONC 34.6 G/dL (31.0-37.0); MEAN CORPUSCULAR VOLUME 92 fL (80-100); MONOCYTES # (AUTO) 0.6 K/uL (0.1-1.0); MONOCYTES % (AUTO) 6.5 % (2.0-9.0); NEUTROPHILS # (AUTO) 5.5 K/uL (1.8-7.7); NEUTROPHILS % (AUTO) 61.7 % (40.0-70.0); PLATELET COUNT (AUTO) 219 K/uL (150-450); RED BLOOD CELL COUNT(AUTO) 3.61 MIL/uL (4.50-5.90); RED CELL DISTRIBUTION WIDTH 15.1 % (11.5-14.5)
[2017-10-29 07:21] LABS: CALCIUM, TOTAL 8.8 mg/dL (8.8-10.5); CREATININE 14.93 mg/dL (0.60-1.30); POTASSIUM 4.2 mmol/L (3.5-5.1)
[2017-10-29] MEDS: LISINOPRIL 20 MG TABLET PO SCH (07:58)
[2017-10-29] MEDS: PANTOPRAZOLE SODIUM 40 MG DR TABLET PO SCH (07:58)
[2017-10-29] MEDS: DOCUSATE SODIUM 100 MG CAPSULE PO SCH ×2 (07:59→20:14)
[2017-10-29 08:06] VITALS: BP 146/89
[2017-10-29 12:05] VITALS: BP 149/83
[2017-10-29 15:20] VITALS: BP 141/83
[2017-10-29 19:13] VITALS: BP 136/84
[2017-10-29 23:58] VITALS: BP 156/94
[2017-10-30 04:39] VITALS: BP 140/77
[2017-10-30 07:48] VITALS: BP 139/90
[2017-10-30] MEDS: PANTOPRAZOLE SODIUM 40 MG DR TABLET PO SCH (10:01)
[2017-10-30] MEDS: DOCUSATE SODIUM 100 MG CAPSULE PO SCH ×2 (10:02→20:23)
[2017-10-30] MEDS: LISINOPRIL 20 MG TABLET PO SCH (10:02)
[2017-10-30 11:12] VITALS: BP 132/85
[2017-10-30 14:26] LABS: PROTHROMBIN TIME 10.6 SEC (9.4-11.6)
[2017-10-30 15:34] VITALS: BP 122/77
[2017-10-30] MEDS ORDERED: CeFAZolin SODIUM 1 GM in DEXTROSE 5%-WATER 10 ML IV SCH (16:00)
[2017-10-30 20:16] VITALS: BP 130/74
[2017-10-30 23:40] VITALS: BP 158/92
[2017-10-31 05:00] VITALS: BP 137/78
[2017-10-31] MEDS ORDERED: VANCOMYCIN HCL 1 GM/D5% WATER 200 ML IV ONE (06:00)
[2017-10-31] MEDS ORDERED: FentaNYL CITRATE-PF 100 MCG/2 ML VIAL ONE (08:34)
[2017-10-31] MEDS ORDERED: MIDAZOLAM HCL 2 MG/2 ML VIAL ONE ×2 (08:34→10:14)
[2017-10-31] MEDS ORDERED: NALOXONE HCL 0.4 MG/ML VIAL ONE (08:34)
[2017-10-31] MEDS ORDERED: FLUMAZENIL 0.1 MG/ML 5 ML VIAL IVP ONE (08:35)
[2017-10-31] MEDS ORDERED: LIDOCAINE HCL/PF 1% 30 ML VIAL ONE (08:35)
[2017-10-31] MEDS ORDERED: HEPARIN SODIUM 1000 UNITS/NS 500 ML ONE (08:35)
[2017-10-31] MEDS ORDERED: HEPARIN SODIUM,PORCINE 1,000 UNITS/ML 10 ML VIAL ONE (08:35)
[2017-10-31 08:43] VITALS: BP 137/81
[2017-10-31] MEDS ORDERED: MIDAZOLAM HCL 2 MG/2 ML VIAL IVP ONE (10:20)
[2017-10-31] MEDS ORDERED: FentaNYL CITRATE-PF 100 MCG/2 ML VIAL IVP ONE (10:20)
[2017-10-31 11:22] VITALS: BP 169/96
[2017-10-31] MEDS ORDERED: HEPARIN SODIUM,PORCINE 1,000 UNITS/ML VIAL IVP ONE (12:00)
[2017-10-31] MEDS ORDERED: NITROGLYCERIN 400 MCG/SUBLINGUAL SPRAY 4.9 GM BOTTLE SL ONE (13:15)
[2017-10-31] MEDS: PANTOPRAZOLE SODIUM 40 MG DR TABLET PO SCH (13:28)
[2017-10-31] MEDS: DOCUSATE SODIUM 100 MG CAPSULE PO SCH ×2 (13:28→20:35)
[2017-10-31] MEDS: LISINOPRIL 20 MG TABLET PO SCH (13:28)
[2017-10-31] MEDS ORDERED: SODIUM CHLORIDE 0.9% 2,000 ML IV ONE (13:44)
[2017-10-31] MEDS ORDERED: KETAMINE HCL 50 MG/ML 10 ML VIAL IV ONE (16:34)
[2017-10-31] MEDS ORDERED: CeFAZolin SODIUM 2 GM in DEXTROSE 5%-WATER 20 ML IV PRN (17:00)
[2017-10-31 18:14] LABS: GLUCOMETER DEV NAME(LOC) PV 4E2; GLUCOSE,POINT OF CARE 109 MG/DL (70-110)
[2017-10-31 18:15] VITALS: BP 106/89
[2017-10-31 19:13] VITALS: BP 119/81
[2017-10-31 23:33] VITALS: BP 110/74
[2017-11-01 04:26] VITALS: BP 114/58
[2017-11-01 06:04] LABS: BASOPHILS % (AUTO) 0.9 % (0.0-2.0); EOSINOPHILS % (AUTO) 8.6 % (1.0-6.0); HEMATOCRIT 35.1 % (41-53); HEMOGLOBIN 12.3 g/dL (13.5-17.5); LYMPHOCYTES # (AUTO) 0.8 K/uL (1.0-4.8); LYMPHOCYTES % (AUTO) 8.9 % (22.0-44.0); MEAN CORPUSCULAR HEMOGLOBIN 31.5 pg (26.0-34.0); MEAN CORPUSCULAR VOLUME 90 fL (80-100); MONOCYTES # (AUTO) 0.7 K/uL (0.1-1.0); MONOCYTES % (AUTO) 7.9 % (2.0-9.0); NEUTROPHILS # (AUTO) 6.7 K/uL (1.8-7.7); NEUTROPHILS % (AUTO) 73.7 % (40.0-70.0); PLATELET COUNT (AUTO) 237 K/uL (150-450); RED BLOOD CELL COUNT(AUTO) 3.91 MIL/uL (4.50-5.90); RED CELL DISTRIBUTION WIDTH 14.9 % (11.5-14.5)
[2017-11-01 06:27] LABS: CALCIUM, TOTAL 9.1 mg/dL (8.8-10.5); CREATININE 13.16 mg/dL (0.60-1.30); POTASSIUM 4.3 mmol/L (3.5-5.1)
[2017-11-01 08:26] VITALS: BP 115/72
[2017-11-01] MEDS: PANTOPRAZOLE SODIUM 40 MG DR TABLET PO SCH (08:41)
[2017-11-01] MEDS: DOCUSATE SODIUM 100 MG CAPSULE PO SCH ×2 (08:41→20:59)
[2017-11-01] MEDS: LISINOPRIL 20 MG TABLET PO SCH (08:42)
[2017-11-01] MEDS: OxyCODONE HCL/ACETAMINOPHEN 5-325 MG TABLET PO PRN (08:43)
[2017-11-01] MEDS ORDERED: -HEMODIALYSIS NOTE- MISC SCH (09:00)
[2017-11-01 12:17] VITALS: BP 103/62
[2017-11-01] MEDS ORDERED: SODIUM CHLORIDE 0.9% 10 ML ONE (13:51)
[2017-11-01] MEDS ORDERED: LIDOCAINE HCL/PF 1% 30 ML VIAL ONE (13:51)
[2017-11-01] MEDS ORDERED: SODIUM CHLORIDE 0.9% 1,000 ML IV ONE ×2 (14:15→15:00)
[2017-11-01] MEDS ORDERED: HYDROCODONE/ACETAMINOPHEN 5-325 MG TABLET PO PRN (18:00)
[2017-11-01] MEDS ORDERED: MEPERIDINE HCL/PF 25 MG/0.5 ML AMP IVP PRN (18:15)
[2017-11-01] MEDS ORDERED: FentaNYL CITRATE-PF 100 MCG/2 ML VIAL IVP PRN (18:15)
[2017-11-01] MEDS ORDERED: HYDROmorphone 2 MG/ML SYRINGE IVP PRN (18:15)
[2017-11-01 19:39] VITALS: BP 141/84
[2017-11-01 23:22] VITALS: BP 117/61
[2017-11-02 04:35] VITALS: BP 135/75
[2017-11-02] MEDS ORDERED: PROPOFOL 1% 20 ML VIAL IVP ONE (05:40)
[2017-11-02] MEDS ORDERED: LIDOCAINE HCL/PF 2% 5 ML VIAL IM ONE (05:40)
[2017-11-02] MEDS ORDERED: DEXAMETHASONE SOD PHOS 4 MG/ML VIAL IVP ONE (05:40)
[2017-11-02] MEDS ORDERED: MIDAZOLAM HCL 2 MG/2 ML VIAL IVP ONE (05:40)
[2017-11-02 08:00] VITALS: BP 134/95
[2017-11-02] MEDS: PANTOPRAZOLE SODIUM 40 MG DR TABLET PO SCH (09:18)
[2017-11-02] MEDS: DOCUSATE SODIUM 100 MG CAPSULE PO SCH (09:18)
[2017-11-02] MEDS: OxyCODONE HCL/ACETAMINOPHEN 5-325 MG TABLET PO PRN (10:43)
[2017-11-02] MEDS ORDERED: CeFAZolin 2 GM/DEXTROSE 50 ML IV PRN (13:00)
[2017-11-02] MEDS ORDERED: HEPARIN SODIUM,PORCINE 5,000 UNITS/ML VIAL SQ ONE (13:00)
[2017-11-02 14:42] VITALS: BP 151/96
[2017-11-02] MEDS: LISINOPRIL 20 MG TABLET PO SCH (14:51)
[2017-11-02 16:22] VITALS: BP 112/61
== END 2017-11-02 16:35 | disposition home or self-care (01) | DRG 264 ==
LOC: EMS 19:11 → 6N 22:18 → 4E 10-30 08:14
PROVIDERS: ADMIT Internal Medicine; ATTEND Internal Medicine
PROC: 0JPT3XZ Removal of Tunneled Vascular Access Device from Trunk Subcutaneous Tissue and Fascia, Percutaneous Approach (ICD-10-PCS; 2017-10-27)
PROC: 02PY33Z Removal of Infusion Device from Great Vessel, Percutaneous Approach (ICD-10-PCS; 2017-10-27)
PROC: 5A1D70Z Performance of Urinary Filtration, Intermittent, Less than 6 Hours Per Day (ICD-10-PCS; 2017-10-27)
PROC: 0JH63XZ Insertion of Tunneled Vascular Access Device into Chest Subcutaneous Tissue and Fascia, Percutaneous Approach (ICD-10-PCS; 2017-10-31)
PROC: 02HV33Z Insertion of Infusion Device into Superior Vena Cava, Percutaneous Approach (ICD-10-PCS; 2017-10-31)
PROC: B518ZZA Fluoroscopy of Superior Vena Cava, Guidance (ICD-10-PCS; 2017-10-31)
PROC: 5A1D70Z Performance of Urinary Filtration, Intermittent, Less than 6 Hours Per Day (ICD-10-PCS; 2017-10-31)
PROC: 031C0ZF Bypass Left Radial Artery to Lower Arm Vein, Open Approach (ICD-10-PCS; principal; 2017-11-01 16:00)
PROC: 5A1D70Z Performance of Urinary Filtration, Intermittent, Less than 6 Hours Per Day (ICD-10-PCS; 2017-11-02)
DX: T80.211A Bloodstream infection due to central venous catheter, initial encounter (principal); A41.01 Sepsis due to Methicillin susceptible Staphylococcus aureus; N18.6 End stage renal disease; B19.10 Unspecified viral hepatitis B without hepatic coma; I12.0 Hypertensive chronic kidney disease with stage 5 chronic kidney disease or end stage renal disease; D63.1 Anemia in chronic kidney disease; Y84.8 Other medical procedures as the cause of abnormal reaction of the patient, or of later complication, without mention of misadventure at the time of the procedure; Z99.2 Dependence on renal dialysis
CPT/HCPCS: 36245; 36561; 36590; 76000; 76937; 82270; 83605; 86706; 86709; 87040; 87070; 87081; 87340; 93005; 93306; 93970; 96365; 99285; J0690; J1100; J1644; J2250; J2310; J2704; J3010; J3370; J3490; J7030; J7060

== ENCOUNTER 2018-09-05 16:53 | Emergency (ER) | payer MEDICAID ==
[~2018-09-05] VITALS: Ht 180.3 cm; Wt 86.0 kg
[~2018-09-05 16:53] MED LIST changes: +AMLO-511 PO; -ASPI81TA39 PO; -FOLI1CAP2 PO; +FOLI1CAP24 PO; -LISI1TAB11 PO; -PANT20TA PO
[2018-09-05] MEDS ORDERED: LOSA50TA64 PO (17:39)
[2018-09-05] MEDS ORDERED: AMLO-512 PO (17:39)
[2018-09-05] MEDS ORDERED: ASPI-1182 PO (17:39)
[2018-09-05] MEDS ORDERED: HYDR25TA84 PO (17:39)
[2018-09-05 18:47] VITALS: BP 152/104
== END 2018-09-05 18:49 | disposition home or self-care (01) ==
LOC: EMS 16:53
DX: R76.11 Nonspecific reaction to tuberculin skin test without active tuberculosis (principal); I12.0 Hypertensive chronic kidney disease with stage 5 chronic kidney disease or end stage renal disease; N18.6 End stage renal disease; Z99.2 Dependence on renal dialysis

== ENCOUNTER 2019-05-25 13:26 | Inpatient (IN) | payer MEDICAID ==
[~2019-05-25] VITALS: Ht 170.2 cm; Wt 72.9 kg
[~2019-05-25 13:26] MED LIST changes: -AMLO-511 PO; +AMLO10TA7 PO; +ASPI-1111 PO; -FOLI1CAP24 PO; +HYDR25TA84 PO; +LOSA-88 PO
[2019-05-25 14:14] LABS: EOSINOPHILS % (AUTO) 0.7 % (1.0-6.0); HEMATOCRIT 35.3 % (41-53); HEMOGLOBIN 11.9 g/dL (13.5-17.5); LYMPHOCYTES # (AUTO) 0.9 K/uL (1.0-4.8); LYMPHOCYTES % (AUTO) 5.9 % (22.0-44.0); MEAN CORPUSCULAR HEMOGLOBIN 32.6 pg (26.0-34.0); MEAN CORPUSCULAR HGB CONC 33.8 G/dL (31.0-37.0); MEAN CORPUSCULAR VOLUME 96 fL (80-100); MONOCYTES # (AUTO) 0.9 K/uL (0.1-1.0); MONOCYTES % (AUTO) 5.6 % (2.0-9.0); NEUTROPHILS # (AUTO) 13.7 K/uL (1.8-7.7); PLATELET COUNT (AUTO) 190 K/uL (150-450); RED BLOOD CELL COUNT(AUTO) 3.66 MIL/uL (4.50-5.90); RED CELL DISTRIBUTION WIDTH 14.5 % (11.5-14.5)
[2019-05-25 14:15] LABS: NEUTROPHILS % (AUTO) 86.8 % (40.0-70.0)
[2019-05-25 14:38] LABS: CREATININE 15.55 mg/dL (0.60-1.30); POTASSIUM 5.5 mmol/L (3.5-5.1)
[2019-05-25 14:42] LABS: ALBUMIN 4.2 g/dL (3.4-5.0); BILIRUBIN,TOTAL 0.8 mg/dL (0.1-1.0); TOTAL PROTEIN, SERUM 7.2 g/dL (6.4-8.2)
[2019-05-25] MEDS ORDERED: NITROGLYCERIN 2% (1 GM=INCH) PACKET TP ONE (16:15)
[2019-05-25] MEDS ORDERED: NITROGLYCERIN 0.4 MG SUBLINGUAL TABLET #25 SL ONE (16:15)
[2019-05-25] MEDS ORDERED: HYDROCODONE/ACETAMINOPHEN 5-325 MG TABLET PO ONE (16:45)
[2019-05-25] MEDS ORDERED: AMOXICILLIN TRIHYDRATE 250 MG CAPSULE PO ONE (16:45)
[2019-05-25] MEDS ORDERED: CloNIDine HCL 0.1 MG TABLET PO ONE ×3 (16:45→21:45)
[2019-05-25] MEDS ORDERED: VANCOMYCIN HCL 1 GM/D5% WATER 200 ML IV ONE (18:30)
[2019-05-25] MEDS ORDERED: HydrALAZINE HCL 20 MG/ML VIAL IVP ONE ×3 (19:15→21:45)
[2019-05-25] MEDS ORDERED: MAGNESIUM HYDROXIDE SUSPENSION 30 ML UDCUP PO PRN (20:30)
[2019-05-25] MEDS ORDERED: ZOLPIDEM TARTRATE 5 MG TABLET PO PRN (20:30)
[2019-05-25] MEDS ORDERED: ACETAMINOPHEN 325 MG TABLET PO PRN (20:30)
[2019-05-25] MEDS ORDERED: ONDANSETRON HCL 4 MG/2 ML VIAL IVP PRN (20:30)
[2019-05-25] MEDS ORDERED: BISACODYL 10 MG RECTAL RECTAL SUPPOSITORY PR PRN (20:30)
[2019-05-25] MEDS: HydrALAZINE HCL 25 MG TABLET PO SCH (21:00)
[2019-05-25] MEDS: DOCUSATE SODIUM 100 MG CAPSULE PO SCH (21:00)
[2019-05-25] MEDS: PIPERACILLIN SODIUM/TAZOBACTAM 2.25 GM in DEXTROSE 5%-WATER 50 ML IV SCH (22:00)
[2019-05-25] MEDS ORDERED: PIPERACILLIN SODIUM/TAZOBACTAM 0.75 GM in DEXTROSE 5%-WATER 50 ML IV PRN (22:00)
[2019-05-25] MEDS ORDERED: SODIUM POLYSTYRENE SULFONATE 15 GM/60 ML SUSPENSION BOTTLE PO ONE (23:15)
[2019-05-26] VITALS (9 sets, daily range): BP systolic 153–201; BP diastolic 73–106
[2019-05-26] MEDS: HEPARIN SODIUM,PORCINE 5,000 UNITS/ML VIAL SQ SCH ×5 (01:30→16:21)
[2019-05-26] MEDS: HYDROCODONE/ACETAMINOPHEN 5-325 MG TABLET PO PRN ×4 (02:05→19:49)
[2019-05-26] MEDS ORDERED: PNEUMOCOCCAL VACCINE POLYVALENT 0.5 ML VIAL [PPSV23] IM ONE (03:30)
[2019-05-26] MEDS ORDERED: SODIUM CHLORIDE 0.9% 100 ML ONE (04:47)
[2019-05-26] MEDS: PIPERACILLIN SODIUM/TAZOBACTAM 2.25 GM in DEXTROSE 5%-WATER 50 ML IV SCH ×3 (05:37→22:42)
[2019-05-26 08:21] LABS: ALBUMIN 3.1 g/dL (3.4-5.0); BILIRUBIN,TOTAL 0.7 mg/dL (0.1-1.0); CALCIUM, TOTAL 8.8 mg/dL (8.8-10.5); CREATININE 17.76 mg/dL (0.60-1.30); POTASSIUM 5.4 mmol/L (3.5-5.1); TOTAL PROTEIN, SERUM 5.7 g/dL (6.4-8.2)
[2019-05-26] MEDS: LOSARTAN POTASSIUM 50 MG TABLET PO SCH (08:22)
[2019-05-26] MEDS: HydrALAZINE HCL 25 MG TABLET PO SCH ×3 (08:22→19:45)
[2019-05-26 11:49] LABS: BASOPHILS % (AUTO) 0.9 % (0.0-2.0); EOSINOPHILS % (AUTO) 0.4 % (1.0-6.0); HEMATOCRIT 28.1 % (41-53); HEMOGLOBIN 9.5 g/dL (13.5-17.5); LYMPHOCYTES # (AUTO) 0.9 K/uL (1.0-4.8); LYMPHOCYTES % (AUTO) 7.6 % (22.0-44.0); MEAN CORPUSCULAR HGB CONC 33.9 G/dL (31.0-37.0); MEAN CORPUSCULAR VOLUME 98 fL (80-100); MONOCYTES # (AUTO) 1.1 K/uL (0.1-1.0); MONOCYTES % (AUTO) 9.3 % (2.0-9.0); NEUTROPHILS # (AUTO) 9.4 K/uL (1.8-7.7); NEUTROPHILS % (AUTO) 81.8 % (40.0-70.0); PLATELET COUNT (AUTO) 142 K/uL (150-450); RED BLOOD CELL COUNT(AUTO) 2.88 MIL/uL (4.50-5.90); RED CELL DISTRIBUTION WIDTH 14.4 % (11.5-14.5)
[2019-05-26] MEDS: AmLODIPine BESYLATE 10 MG TABLET PO SCH (14:31)
[2019-05-26] MEDS: DOCUSATE SODIUM 100 MG CAPSULE PO SCH ×2 (16:08→19:45)
[2019-05-26] MEDS: ASPIRIN 81 MG EC TABLET PO SCH (16:08)
[2019-05-26] MEDS: PANTOPRAZOLE SODIUM 40 MG DR TABLET PO SCH (16:08)
[2019-05-26] MEDS ORDERED: SODIUM CHLORIDE 0.9% 250 ML IV ONE ×2 (16:16→20:14)
[2019-05-26] MEDS: HydrALAZINE HCL 20 MG/ML VIAL IVP PRN (17:46)
[2019-05-26] MEDS: MORPHINE SULFATE 2 MG/ML SYRINGE IVP PRN (17:58)
[2019-05-26] MEDS: -POST HEMODIALYSIS NOTE- MISC SCH (20:00)
[2019-05-26] MEDS ORDERED: VANCOMYCIN HCL 1 GM/D5% WATER 200 ML IV PRN (20:15)
[2019-05-26] MEDS: CLINDAMYCIN 900 MG/D5% WATER 50 ML IV SCH (22:14)
[2019-05-27 05:25] VITALS: BP 183/94
[2019-05-27] MEDS: HydrALAZINE HCL 20 MG/ML VIAL IVP PRN ×2 (05:31→15:49)
[2019-05-27] MEDS: CLINDAMYCIN 900 MG/D5% WATER 50 ML IV SCH ×3 (05:32→20:29)
[2019-05-27] MEDS: PIPERACILLIN SODIUM/TAZOBACTAM 2.25 GM in DEXTROSE 5%-WATER 50 ML IV SCH ×3 (06:14→22:26)
[2019-05-27 06:59] LABS: BASOPHILS % (AUTO) 0.9 % (0.0-2.0); EOSINOPHILS % (AUTO) 2.5 % (1.0-6.0); HEMATOCRIT 30.3 % (41-53); HEMOGLOBIN 10.4 g/dL (13.5-17.5); LYMPHOCYTES # (AUTO) 0.9 K/uL (1.0-4.8); MEAN CORPUSCULAR HEMOGLOBIN 33.3 pg (26.0-34.0); MEAN CORPUSCULAR HGB CONC 34.4 G/dL (31.0-37.0); MEAN CORPUSCULAR VOLUME 97 fL (80-100); MONOCYTES # (AUTO) 1.1 K/uL (0.1-1.0); NEUTROPHILS % (AUTO) 74.6 % (40.0-70.0); PLATELET COUNT (AUTO) 147 K/uL (150-450); RED BLOOD CELL COUNT(AUTO) 3.13 MIL/uL (4.50-5.90); RED CELL DISTRIBUTION WIDTH 14.5 % (11.5-14.5)
[2019-05-27 07:20] VITALS: BP 151/97
[2019-05-27 08:11] LABS: ALBUMIN 3.1 g/dL (3.4-5.0); BILIRUBIN,TOTAL 0.7 mg/dL (0.1-1.0); CREATININE 11.97 mg/dL (0.60-1.30); FREE T4 (FREE THYROXINE) 1.5 ng/dL (0.76-1.46); THYROID STIMULATING HORMONE 2.07 uIU/mL (0.36-3.74); TOTAL PROTEIN, SERUM 6.4 g/dL (6.4-8.2); VANCOMYCIN,RANDOM 12.6 mcg/mL (25.0-50.0)
[2019-05-27] MEDS: HYDROCODONE/ACETAMINOPHEN 5-325 MG TABLET PO PRN (08:47)
[2019-05-27] MEDS: PANTOPRAZOLE SODIUM 40 MG DR TABLET PO SCH (08:48)
[2019-05-27] MEDS: AmLODIPine BESYLATE 10 MG TABLET PO SCH (08:48)
[2019-05-27] MEDS: HEPARIN SODIUM,PORCINE 5,000 UNITS/ML VIAL SQ SCH ×3 (08:48→16:00)
[2019-05-27] MEDS: HydrALAZINE HCL 25 MG TABLET PO SCH (08:48)
[2019-05-27] MEDS: ASPIRIN 81 MG EC TABLET PO SCH (08:48)
[2019-05-27] MEDS: DOCUSATE SODIUM 100 MG CAPSULE PO SCH ×2 (08:48→20:20)
[2019-05-27] MEDS: LOSARTAN POTASSIUM 50 MG TABLET PO SCH (08:51)
[2019-05-27] MEDS ORDERED: VANCOMYCIN HCL 1 GM/D5% WATER 200 ML IV ONE (09:00)
[2019-05-27] MEDS ORDERED: SODIUM CHLORIDE 0.9% 2,000 ML ONE (09:56)
[2019-05-27] MEDS: MORPHINE SULFATE 2 MG/ML SYRINGE IVP PRN (11:15)
[2019-05-27 12:10] VITALS: BP 163/98
[2019-05-27] MEDS: SEVELAMER CARBONATE 800 MG TABLET PO SCH ×2 (14:18→14:25)
[2019-05-27] MEDS: HydrALAZINE HCL 50 MG TABLET PO SCH ×3 (14:25→20:20)
[2019-05-27 15:33] VITALS: BP 178/94
[2019-05-27 20:00] VITALS: BP 160/90
[2019-05-28] VITALS (8 sets, daily range): BP systolic 138–179; BP diastolic 76–107
[2019-05-28] MEDS: HYDROCODONE/ACETAMINOPHEN 5-325 MG TABLET PO PRN (01:23)
[2019-05-28] MEDS: HEPARIN SODIUM,PORCINE 5,000 UNITS/ML VIAL SQ SCH ×3 (01:25→16:18)
[2019-05-28] MEDS: HydrALAZINE HCL 20 MG/ML VIAL IVP PRN (01:28)
[2019-05-28] MEDS: CLINDAMYCIN 900 MG/D5% WATER 50 ML IV SCH ×3 (05:38→20:13)
[2019-05-28] MEDS: PIPERACILLIN SODIUM/TAZOBACTAM 2.25 GM in DEXTROSE 5%-WATER 50 ML IV SCH ×3 (05:39→21:11)
[2019-05-28 06:40] LABS: BASOPHILS % (AUTO) 0.9 % (0.0-2.0); EOSINOPHILS % (AUTO) 4.1 % (1.0-6.0); HEMATOCRIT 29.8 % (41-53); HEMOGLOBIN 10.5 g/dL (13.5-17.5); LYMPHOCYTES # (AUTO) 0.9 K/uL (1.0-4.8); LYMPHOCYTES % (AUTO) 10.7 % (22.0-44.0); MEAN CORPUSCULAR HEMOGLOBIN 33.9 pg (26.0-34.0); MEAN CORPUSCULAR HGB CONC 35.1 G/dL (31.0-37.0); MEAN CORPUSCULAR VOLUME 97 fL (80-100); MONOCYTES # (AUTO) 1.1 K/uL (0.1-1.0); MONOCYTES % (AUTO) 12.3 % (2.0-9.0); NEUTROPHILS # (AUTO) 6.4 K/uL (1.8-7.7); PLATELET COUNT (AUTO) 160 K/uL (150-450); RED BLOOD CELL COUNT(AUTO) 3.09 MIL/uL (4.50-5.90); RED CELL DISTRIBUTION WIDTH 14.4 % (11.5-14.5)
[2019-05-28 06:57] LABS: BILIRUBIN,TOTAL 0.6 mg/dL (0.1-1.0); CALCIUM, TOTAL 9.3 mg/dL (8.8-10.5); CREATININE 9.58 mg/dL (0.60-1.30); POTASSIUM 4.8 mmol/L (3.5-5.1); TOTAL PROTEIN, SERUM 6.3 g/dL (6.4-8.2)
[2019-05-28] MEDS: -POST HEMODIALYSIS NOTE- MISC SCH ×2 (07:36→09:39)
[2019-05-28] MEDS: HydrALAZINE HCL 50 MG TABLET PO SCH ×3 (08:09→20:13)
[2019-05-28] MEDS: DOCUSATE SODIUM 100 MG CAPSULE PO SCH ×2 (08:09→20:18)
[2019-05-28] MEDS: ASPIRIN 81 MG EC TABLET PO SCH (08:09)
[2019-05-28] MEDS: SEVELAMER CARBONATE 800 MG TABLET PO SCH ×3 (08:09→17:33)
[2019-05-28] MEDS: AmLODIPine BESYLATE 10 MG TABLET PO SCH (08:09)
[2019-05-28] MEDS: PANTOPRAZOLE SODIUM 40 MG DR TABLET PO SCH (08:09)
[2019-05-28] MEDS: EPOETIN ALFA 10,000 UNITS/ML 2 ML VIAL SQ SCH (08:11)
[2019-05-28] MEDS ORDERED: SODIUM CHLORIDE 0.9% 2,000 ML ONE (08:45)
[2019-05-28] MEDS ORDERED: VANCOMYCIN HCL 1 GM/D5% WATER 200 ML IV ONE (15:00)
[2019-05-28] MEDS: LOSARTAN POTASSIUM 50 MG TABLET PO SCH (15:39)
[2019-05-28] MEDS: NIFEdipine 30 MG ER TABLET PO SCH (20:13)
[2019-05-29] VITALS (7 sets, daily range): BP systolic 150–183; BP diastolic 79–103
[2019-05-29] MEDS: CLINDAMYCIN 900 MG/D5% WATER 50 ML IV SCH ×2 (05:42→12:55)
[2019-05-29] MEDS: PIPERACILLIN SODIUM/TAZOBACTAM 2.25 GM in DEXTROSE 5%-WATER 50 ML IV SCH ×3 (06:30→22:11)
[2019-05-29 07:19] LABS: BASOPHILS % (AUTO) 1.9 % (0.0-2.0); EOSINOPHILS % (AUTO) 7.1 % (1.0-6.0); HEMATOCRIT 36.5 % (41-53); HEMOGLOBIN 12.2 g/dL (13.5-17.5); LYMPHOCYTES # (AUTO) 1.1 K/uL (1.0-4.8); LYMPHOCYTES % (AUTO) 15.3 % (22.0-44.0); MEAN CORPUSCULAR HEMOGLOBIN 32.3 pg (26.0-34.0); MEAN CORPUSCULAR HGB CONC 33.4 G/dL (31.0-37.0); MEAN CORPUSCULAR VOLUME 97 fL (80-100); MONOCYTES # (AUTO) 0.9 K/uL (0.1-1.0); MONOCYTES % (AUTO) 12.6 % (2.0-9.0); NEUTROPHILS # (AUTO) 4.5 K/uL (1.8-7.7); NEUTROPHILS % (AUTO) 63.1 % (40.0-70.0); PLATELET COUNT (AUTO) 194 K/uL (150-450); RED BLOOD CELL COUNT(AUTO) 3.77 MIL/uL (4.50-5.90); RED CELL DISTRIBUTION WIDTH 14.2 % (11.5-14.5)
[2019-05-29 07:32] LABS: CALCIUM, TOTAL 9.6 mg/dL (8.8-10.5); CREATININE 8.06 mg/dL (0.60-1.30); POTASSIUM 4.8 mmol/L (3.5-5.1)
[2019-05-29 07:33] LABS: ALBUMIN 3.3 g/dL (3.4-5.0); BILIRUBIN,TOTAL 0.5 mg/dL (0.1-1.0); TOTAL PROTEIN, SERUM 7.2 g/dL (6.4-8.2); VANCOMYCIN,RANDOM 38.3 mcg/mL (25.0-50.0)
[2019-05-29] MEDS: HEPARIN SODIUM,PORCINE 5,000 UNITS/ML VIAL SQ SCH ×4 (08:24→23:43)
[2019-05-29] MEDS: LOSARTAN POTASSIUM 50 MG TABLET PO SCH (08:27)
[2019-05-29] MEDS: ASPIRIN 81 MG EC TABLET PO SCH (08:27)
[2019-05-29] MEDS: NIFEdipine 30 MG ER TABLET PO SCH ×2 (08:27→20:16)
[2019-05-29] MEDS: PANTOPRAZOLE SODIUM 40 MG DR TABLET PO SCH (08:27)
[2019-05-29] MEDS: SEVELAMER CARBONATE 800 MG TABLET PO SCH ×3 (08:28→17:22)
[2019-05-29] MEDS: DOCUSATE SODIUM 100 MG CAPSULE PO SCH ×2 (08:32→20:15)
[2019-05-29] MEDS: HydrALAZINE HCL 50 MG TABLET PO SCH ×3 (08:35→20:19)
[2019-05-29] MEDS: -POST HEMODIALYSIS NOTE- MISC SCH (10:41)
[2019-05-29] MEDS ORDERED: SODIUM CHLORIDE 0.9% 250 ML IV ONE (13:56)
[2019-05-29] MEDS: HydrALAZINE HCL 20 MG/ML VIAL IVP PRN (23:33)
[2019-05-30 04:15] VITALS: BP 157/84
[2019-05-30] MEDS: HYDROCODONE/ACETAMINOPHEN 5-325 MG TABLET PO PRN ×3 (05:25→18:25)
[2019-05-30] MEDS: PIPERACILLIN SODIUM/TAZOBACTAM 2.25 GM in DEXTROSE 5%-WATER 50 ML IV SCH ×3 (05:25→21:01)
[2019-05-30 07:46] VITALS: BP 189/88
[2019-05-30] MEDS: DOCUSATE SODIUM 100 MG CAPSULE PO SCH ×2 (08:10→20:46)
[2019-05-30] MEDS: NIFEdipine 30 MG ER TABLET PO SCH ×2 (08:10→20:46)
[2019-05-30] MEDS: HydrALAZINE HCL 20 MG/ML VIAL IVP PRN ×2 (08:10→23:28)
[2019-05-30] MEDS: SEVELAMER CARBONATE 800 MG TABLET PO SCH ×3 (08:10→18:25)
[2019-05-30] MEDS: ASPIRIN 81 MG EC TABLET PO SCH (08:10)
[2019-05-30] MEDS: LOSARTAN POTASSIUM 50 MG TABLET PO SCH (08:10)
[2019-05-30] MEDS: HEPARIN SODIUM,PORCINE 5,000 UNITS/ML VIAL SQ SCH ×3 (08:10→23:19)
[2019-05-30] MEDS: PANTOPRAZOLE SODIUM 40 MG DR TABLET PO SCH (08:10)
[2019-05-30] MEDS: -POST HEMODIALYSIS NOTE- MISC SCH (08:14)
[2019-05-30] MEDS: HydrALAZINE HCL 50 MG TABLET PO SCH ×3 (08:14→20:46)
[2019-05-30] MEDS: EPOETIN ALFA 10,000 UNITS/ML 2 ML VIAL SQ SCH (08:15)
[2019-05-30 11:07] VITALS: BP 167/88
[2019-05-30 15:46] VITALS: BP 196/89
[2019-05-30 20:40] VITALS: BP 161/101
[2019-05-31 00:31] VITALS: BP 169/94
[2019-05-31] MEDS: HYDROCODONE/ACETAMINOPHEN 5-325 MG TABLET PO PRN (02:43)
[2019-05-31 04:52] VITALS: BP 157/94
[2019-05-31] MEDS: PIPERACILLIN SODIUM/TAZOBACTAM 2.25 GM in DEXTROSE 5%-WATER 50 ML IV SCH ×2 (05:51→14:09)
[2019-05-31 07:49] VITALS: BP 165/92
[2019-05-31] MEDS: -POST HEMODIALYSIS NOTE- MISC SCH (08:32)
[2019-05-31] MEDS: HEPARIN SODIUM,PORCINE 5,000 UNITS/ML VIAL SQ SCH ×2 (08:37→16:14)
[2019-05-31] MEDS: LOSARTAN POTASSIUM 50 MG TABLET PO SCH (08:38)
[2019-05-31] MEDS: ASPIRIN 81 MG EC TABLET PO SCH (08:38)
[2019-05-31] MEDS: HydrALAZINE HCL 50 MG TABLET PO SCH ×2 (08:38→16:08)
[2019-05-31] MEDS: SEVELAMER CARBONATE 800 MG TABLET PO SCH ×2 (08:38→12:34)
[2019-05-31] MEDS: PANTOPRAZOLE SODIUM 40 MG DR TABLET PO SCH (08:38)
[2019-05-31] MEDS: DOCUSATE SODIUM 100 MG CAPSULE PO SCH (08:38)
[2019-05-31] MEDS: NIFEdipine 30 MG ER TABLET PO SCH (08:38)
[2019-05-31 11:48] VITALS: BP 188/107
[2019-05-31] MEDS: HydrALAZINE HCL 20 MG/ML VIAL IVP PRN (13:17)
[2019-05-31 15:18] VITALS: BP 153/99
[2019-05-31] MEDS ORDERED: LEVO-72 PO (16:50)
[2019-05-31] MEDS ORDERED: METR500 PO (16:51)
[2019-05-31] MEDS ORDERED: VANC250C13 IVPB (16:53)
== END 2019-05-31 17:20 | disposition home or self-care (01) | DRG 113 ==
LOC: EMS 13:31 → 5S 19:00
PROVIDERS: ADMIT Internal Medicine; ATTEND Internal Medicine
PROC: 5A1D70Z Performance of Urinary Filtration, Intermittent, Less than 6 Hours Per Day (ICD-10-PCS; principal; 2019-05-26)
PROC: 5A1D70Z Performance of Urinary Filtration, Intermittent, Less than 6 Hours Per Day (ICD-10-PCS; 2019-05-27)
PROC: 5A1D70Z Performance of Urinary Filtration, Intermittent, Less than 6 Hours Per Day (ICD-10-PCS; 2019-05-28)
PROC: 5A1D70Z Performance of Urinary Filtration, Intermittent, Less than 6 Hours Per Day (ICD-10-PCS; 2019-05-30)
DX: H70.001 Acute mastoiditis without complications, right ear (principal); E87.5 Hyperkalemia; I12.0 Hypertensive chronic kidney disease with stage 5 chronic kidney disease or end stage renal disease; N18.6 End stage renal disease; Z99.2 Dependence on renal dialysis; D63.1 Anemia in chronic kidney disease; D72.829 Elevated white blood cell count, unspecified; E78.5 Hyperlipidemia, unspecified; E21.3 Hyperparathyroidism, unspecified
CPT/HCPCS: 70450; 84145; 84439; 84443; 87040; 87081; 87340; 93005; 93306; J0360; J0885; J1644; J2270; J2543; J3370; J3490; J7030; J7050; J7060

== ENCOUNTER 2019-07-21 10:14 | Emergency (ER) | payer MEDICAID ==
[~2019-07-21] VITALS: Ht 167.6 cm; Wt 63.6 kg
[~2019-07-21 10:14] MED LIST changes: +LEVO-72 PO; +METR500 PO; +VANC250C13 IVPB
[2019-07-21] MEDS ORDERED: HYDR-2924 PO (10:18)
[2019-07-21] MEDS ORDERED: NIFE-39 PO (10:18)
[2019-07-21] MEDS ORDERED: LOSA-88 PO (10:18)
[2019-07-21 12:01] LABS: BASOPHILS % (AUTO) 1.1 % (0.0-2.0); EOSINOPHILS % (AUTO) 4.2 % (1.0-6.0); HEMATOCRIT 37.2 % (41-53); HEMOGLOBIN 12.4 g/dL (13.5-17.5); LYMPHOCYTES # (AUTO) 1.5 K/uL (1.0-4.8); LYMPHOCYTES % (AUTO) 18.9 % (22.0-44.0); MEAN CORPUSCULAR HEMOGLOBIN 31.8 pg (26.0-34.0); MEAN CORPUSCULAR HGB CONC 33.4 G/dL (31.0-37.0); MEAN CORPUSCULAR VOLUME 95 fL (80-100); MONOCYTES # (AUTO) 0.6 K/uL (0.1-1.0); MONOCYTES % (AUTO) 7.9 % (2.0-9.0); NEUTROPHILS # (AUTO) 5.4 K/uL (1.8-7.7); NEUTROPHILS % (AUTO) 67.9 % (40.0-70.0); PLATELET COUNT (AUTO) 244 K/uL (150-450); RED BLOOD CELL COUNT(AUTO) 3.91 MIL/uL (4.50-5.90); RED CELL DISTRIBUTION WIDTH 13.7 % (11.5-14.5)
[2019-07-21 12:09] LABS: CALCIUM, TOTAL 10.1 mg/dL (8.8-10.5); CREATININE 10.8 mg/dL (0.60-1.30)
[2019-07-21 12:15] LABS: ALBUMIN 4.4 g/dL (3.4-5.0); BILIRUBIN,TOTAL 0.5 mg/dL (0.1-1.0); TOTAL PROTEIN, SERUM 7.6 g/dL (6.4-8.2)
[2019-07-21] MEDS ORDERED: ASPIRIN 325 MG TABLET PO ONE (12:45)
[2019-07-21] MEDS ORDERED: LOSARTAN POTASSIUM 50 MG TABLET PO SCH (13:00)
[2019-07-21] MEDS ORDERED: AmLODIPine BESYLATE 10 MG TABLET PO SCH (13:00)
[2019-07-21] MEDS ORDERED: ONDANSETRON HCL 4 MG/2 ML VIAL IVP PRN (13:00)
[2019-07-21] MEDS ORDERED: OxyCODONE HCL/ACETAMINOPHEN 5-325 MG TABLET PO PRN (13:00)
[2019-07-21] MEDS ORDERED: ACETAMINOPHEN 325 MG TABLET PO PRN ×2 (13:00)
[2019-07-21] MEDS ORDERED: 0.9% SODIUM CHLORIDE 10 ML SYRINGE IVP PRN (13:00)
[2019-07-21 15:30] VITALS: BP 190/103
[2019-07-21] MEDS ORDERED: HEPARIN SODIUM,PORCINE 5,000 UNITS/ML VIAL SQ SCH (21:00)
[2019-07-21] MEDS ORDERED: DOCUSATE SODIUM 100 MG CAPSULE PO SCH (21:00)
[2019-07-22] MEDS ORDERED: ASPIRIN 81 MG CHEWABLE TABLET PO SCH (09:00)
[2019-07-22] MEDS ORDERED: FAMOTIDINE 20 MG TABLET PO SCH (09:00)
== END 2019-07-21 15:41 | disposition left against medical advice (07) ==
LOC: EMS 10:15
DX: R07.89 Other chest pain (principal); I12.0 Hypertensive chronic kidney disease with stage 5 chronic kidney disease or end stage renal disease; N18.6 End stage renal disease; Z99.2 Dependence on renal dialysis; Z79.82 Long term (current) use of aspirin
CPT/HCPCS: 93005

== ENCOUNTER 2021-09-17 10:01 | Emergency (ER) | payer MEDICAID ==
[~2021-09-17] VITALS: Ht 165.1 cm; Wt 75.0 kg
[~2021-09-17 10:01] MED LIST changes: +AMLO-258 PO; -AMLO10TA7 PO; +APIX2.5T PO; -ASPI-1111 PO; +ASPI-1444 PO; +B CO1CAP6 PO; +DEXA6TAB PO; -HYDR25TA84 PO; +HYDR50TA36 PO; -LEVO-72 PO; -LOSA-88 PO; +LOSA50TA2 PO; -METR500 PO; +NIFE-39 PO; -VANC250C13 IVPB
[2021-09-17] MEDS ORDERED: CARV25TA32 PO (10:55)
[2021-09-17] MEDS ORDERED: KETOROLAC TROMETHAMINE 30 MG/ML VIAL IM ONE (11:00)
[2021-09-17 11:07] LABS: BASOPHILS % (AUTO) 2.5 % (0.0-2.0); EOSINOPHILS % (AUTO) 3.1 % (1.0-6.0); HEMATOCRIT 39.7 % (41-53); HEMOGLOBIN 13.4 g/dL (13.5-17.5); LYMPHOCYTES # (AUTO) 1.1 K/uL (1.0-4.8); LYMPHOCYTES % (AUTO) 19.2 % (22.0-44.0); MEAN CORPUSCULAR HGB CONC 33.8 G/dL (31.0-37.0); MEAN CORPUSCULAR VOLUME 95 fL (80-100); MONOCYTES # (AUTO) 0.6 K/uL (0.1-1.0); MONOCYTES % (AUTO) 10.1 % (2.0-9.0); NEUTROPHILS # (AUTO) 3.8 K/uL (1.8-7.7); NEUTROPHILS % (AUTO) 65.1 % (40.0-70.0); PLATELET COUNT (AUTO) 178 K/uL (150-450); RED CELL DISTRIBUTION WIDTH 13.2 % (11.5-14.5)
[2021-09-17 11:17] LABS: CREATININE 14.2 mg/dL (0.60-1.30)
[2021-09-17 11:23] LABS: ALBUMIN 4.2 g/dL (3.4-5.0); BILIRUBIN,TOTAL 0.5 mg/dL (0.1-1.0); TOTAL PROTEIN, SERUM 7.5 g/dL (6.4-8.2)
[2021-09-17 11:25] LABS: APPEARANCE,URINE CLEAR (CLEAR); BILIRUBIN,URINE NEGATIVE (NEGATIVE); GLUCOSE, URINE (UA) 150-200 mg/dL (NEGATIVE); KETONES,URINE NEGATIVE (NEGATIVE); LEUKOCYTE ESTERASE ,URINE NEGATIVE (NEGATIVE); NITRATE,URINE NEGATIVE (NEGATIVE); OCCULT BLOOD,URINE SMALL (NEGATIVE); PROTEIN,URINE 100-200,SEE CONFIRM mg/dL (NEGATIVE); SPECIFIC GRAVITIY, URINE 1.007 (1.003-1.030); UROBILINOGEN,URINE <=1.0 mg/dL (<=1.0)
[2021-09-17 11:33] LABS: BACTERIA,URINE None Seen /HPF (None Seen); RBC,URINE None Seen /HPF (0-2); SQUAMOUS EPITHELIAL CELL,UR None Seen /LPF (None Seen); SULFOSALICYLIC ACID,URINE 2+ (Negative); WBC,URINE None Seen /HPF (0-5)
[2021-09-17] MEDS ORDERED: CYCL-448 PO (12:56)
[2021-09-17 12:59] VITALS: BP 143/80
== END 2021-09-17 13:09 | disposition home or self-care (01) ==
LOC: EMS 10:02
DX: R10.31 Right lower quadrant pain (principal); M54.9 Dorsalgia, unspecified; I12.0 Hypertensive chronic kidney disease with stage 5 chronic kidney disease or end stage renal disease; N18.6 End stage renal disease; Z99.2 Dependence on renal dialysis; Z98.890 Other specified postprocedural states
CPT/HCPCS: 36415; 74176; 80053; 81001; 83690; 85025; 96372; 99284; J1885; 81002

== ENCOUNTER 2023-07-22 00:05 | Emergency (ER) | payer MEDICAID ==
[~2023-07-22] VITALS: Ht 170.2 cm; Wt 78.5 kg
[~2023-07-22 00:05] MED LIST changes: -AMLO-258 PO; +CARV25TA32 PO; +CYCL-448 PO; -DEXA6TAB PO; +LOSA-418 PO; -LOSA50TA2 PO; +NIFE-129 PO; -NIFE-39 PO
[2023-07-22 00:35] VITALS: TEMP 98.4
[2023-07-22 01:26] LABS: BASOPHILS % (AUTO) 2.9 % (0.0-2.0); EOSINOPHILS % (AUTO) 3.8 % (1.0-6.0); HEMATOCRIT 28.5 % (41-53); HEMOGLOBIN 9.6 g/dL (13.5-17.5); LYMPHOCYTES # (AUTO) 1.1 K/uL (1.0-4.8); MEAN CORPUSCULAR HGB CONC 33.7 G/dL (31.0-37.0); MEAN CORPUSCULAR VOLUME 95 fL (80-100); MONOCYTES # (AUTO) 0.6 K/uL (0.1-1.0); MONOCYTES % (AUTO) 9.8 % (2.0-9.0); NEUTROPHILS # (AUTO) 4.1 K/uL (1.8-7.7); NEUTROPHILS % (AUTO) 65.5 % (40.0-70.0); PLATELET COUNT (AUTO) 185 K/uL (150-450); RED CELL DISTRIBUTION WIDTH 15.1 % (11.5-14.5); WHITE BLOOD COUNT (AUTO) 6.3 K/uL (4.5-11.0)
[2023-07-22] MEDS: KETOROLAC TROMETHAMINE 30 MG/ML VIAL IM ONE (01:28)
[2023-07-22] MEDS: KETOROLAC TROMETHAMINE 30 MG/ML VIAL IVP ONE (01:30)
[2023-07-22 01:37] LABS: CALCIUM, TOTAL 8.9 mg/dL (8.8-10.5); CREATININE 8.23 mg/dL (0.60-1.30); POTASSIUM 4.5 mmol/L (3.5-5.1)
[2023-07-22] MEDS: PHENOBARB/HYOSCY/ATROPINE/SCOP 5 ML UDCUP ELIXIR PO ONE (01:44)
[2023-07-22 01:50] LABS: TROPONIN I-HIGH SENSITIVITY 30 ng/L (<76)
[2023-07-22 02:43] VITALS: BP 160/89; PULSE 56; RESP 18
== END 2023-07-22 03:43 | disposition home or self-care (01) ==
LOC: EMS 00:08
DX: R10.9 Unspecified abdominal pain (principal); I10 Essential (primary) hypertension
CPT/HCPCS: 99285; 96374; 71045; 80048; 83690; 84484; 85025; 36415; 93005; J1885

== ENCOUNTER 2023-08-14 21:23 | Emergency (ER) | payer MEDICAID, OTHER ==
[~2023-08-14] VITALS: Ht 170.2 cm; Wt 78.5 kg
[2023-08-14 22:27] LABS: EOSINOPHILS % (AUTO) 3.3 % (1.0-6.0); HEMATOCRIT 30.5 % (41-53); HEMOGLOBIN 10.1 g/dL (13.5-17.5); LYMPHOCYTES # (AUTO) 0.9 K/uL (1.0-4.8); LYMPHOCYTES % (AUTO) 13.7 % (22.0-44.0); MEAN CORPUSCULAR VOLUME 97 fL (80-100); MONOCYTES # (AUTO) 0.7 K/uL (0.1-1.0); MONOCYTES % (AUTO) 11.2 % (2.0-9.0); NEUTROPHILS # (AUTO) 4.5 K/uL (1.8-7.7); NEUTROPHILS % (AUTO) 69.8 % (40.0-70.0); PLATELET COUNT (AUTO) 210 K/uL (150-450); RED BLOOD CELL COUNT(AUTO) 3.15 MIL/uL (4.50-5.90); WHITE BLOOD COUNT (AUTO) 6.4 K/uL (4.5-11.0)
[2023-08-14 22:38] LABS: CALCIUM, TOTAL 8.9 mg/dL (8.8-10.5); CREATININE 9.44 mg/dL (0.60-1.30)
[2023-08-14 22:43] LABS: ALBUMIN 3.9 g/dL (3.4-5.0); BILIRUBIN,TOTAL 0.4 mg/dL (0.1-1.0)
[2023-08-15 00:39] LABS: TROPONIN I-HIGH SENSITIVITY 45 ng/L (<76)
[2023-08-15 00:47] LABS: LACTIC ACID 0.7 mmol/L (0.4-2.0)
[2023-08-15] MEDS ORDERED: POLY119P3 PO (05:54)
[2023-08-15 06:18] VITALS: BP 144/72; PULSE 58; RESP 15; TEMP 97.9
== END 2023-08-15 07:18 | disposition home or self-care (01) ==
LOC: EMS 21:28
DX: R10.30 Lower abdominal pain, unspecified (principal); K59.00 Constipation, unspecified; K57.10 Diverticulosis of small intestine without perforation or abscess without bleeding; N18.6 End stage renal disease; I10 Essential (primary) hypertension; Z99.2 Dependence on renal dialysis
CPT/HCPCS: 71045; 74176; 80053; 83605; 83690; 84484; 85025; 93005; 99285; 36415-L1; 36415-TC

== ENCOUNTER 2023-08-22 15:43 | Emergency (ER) | payer OTHER ==
[~2023-08-22] VITALS: Ht 170.2 cm; Wt 82.7 kg
[~2023-08-22 15:43] MED LIST changes: +POLY119P3 PO
[2023-08-22 15:58] VITALS: BP 177/95; PULSE 57; RESP 18; TEMP 96.9
[2023-08-22 16:34] LABS: BASOPHILS % (AUTO) 1.7 % (0.0-2.0); EOSINOPHILS % (AUTO) 1.8 % (1.0-6.0); HEMATOCRIT 29.2 % (41-53); HEMOGLOBIN 9.8 g/dL (13.5-17.5); LYMPHOCYTES # (AUTO) 0.8 K/uL (1.0-4.8); LYMPHOCYTES % (AUTO) 14.1 % (22.0-44.0); MEAN CORPUSCULAR HEMOGLOBIN 31.8 pg (26.0-34.0); MEAN CORPUSCULAR HGB CONC 33.4 G/dL (31.0-37.0); MEAN CORPUSCULAR VOLUME 95 fL (80-100); MONOCYTES # (AUTO) 0.6 K/uL (0.1-1.0); MONOCYTES % (AUTO) 11.3 % (2.0-9.0); NEUTROPHILS # (AUTO) 4.1 K/uL (1.8-7.7); NEUTROPHILS % (AUTO) 71.1 % (40.0-70.0); PLATELET COUNT (AUTO) 152 K/uL (150-450); RED BLOOD CELL COUNT(AUTO) 3.07 MIL/uL (4.50-5.90); RED CELL DISTRIBUTION WIDTH 14.8 % (11.5-14.5); WHITE BLOOD COUNT (AUTO) 5.8 K/uL (4.5-11.0)
[2023-08-22 16:42] LABS: ANION GAP 10 mmol/L (8-16); CALCIUM, TOTAL 9.1 mg/dL (8.8-10.5); CARBON DIOXIDE 31 mmol/L (22-29); CHLORIDE 97 mmol/L (98-107); CREATININE 10.53 mg/dL (0.60-1.30); GLOMERULAR FILTR. RATE CALC 5 mL/min (>60); GLUCOSE,RANDOM 136 mg/dL (70-110); POTASSIUM 4.5 mmol/L (3.5-5.1); SODIUM SERUM 138 mmol/L (136-145); UREA NITROGEN, BLOOD 35 mg/dL (7-18)
[2023-08-22 16:46] LABS: ALCOHOL, BLOOD (SERUM) < 3 mg/dL (0-10)
[2023-08-22 16:50] LABS: LACTIC ACID 0.9 mmol/L (0.4-2.0)
[2023-08-22 16:55] LABS: B-TYPE NATRIURETIC PEPTIDE 175 pg/mL (0-100)
[2023-08-22 16:56] LABS: ALANINE AMINOTRANSFERASE 15 U/L (12-78); ALBUMIN 3.7 g/dL (3.4-5.0); ALKALINE PHOSPHATASE 82 U/L (46-116); ASPARTATE AMINOTRANSFERASE 12 U/L (15-37); BILIRUBIN,TOTAL 0.3 mg/dL (0.1-1.0); LIPASE 39 U/L (16-77)
[2023-08-22 16:57] LABS: TROPONIN I-HIGH SENSITIVITY 31 ng/L (<76)
[2023-08-22] MEDS ORDERED: SODIUM CHLORIDE 0.9% 100 ML ONE (17:59)
[2023-08-22] MEDS ORDERED: IOHEXOL 350 MG/ML 100 ML VIAL ONE (17:59)
[2023-08-22] MEDS ORDERED: LACT10SO10 PO (19:35)
== END 2023-08-22 20:19 | disposition home or self-care (01) ==
LOC: EMS 15:48
DX: R10.32 Left lower quadrant pain (principal); K59.00 Constipation, unspecified; N18.6 End stage renal disease; I10 Essential (primary) hypertension; Z99.2 Dependence on renal dialysis
CPT/HCPCS: 99285; 74177; 71045; 80053; 83605; 83690; 83880; 84484; 85025; 87040; 36415; 93005; G0480; Q9967; J7050

== ENCOUNTER 2023-10-22 14:01 | Inpatient (IN) | payer OTHER ==
[~2023-10-22] VITALS: Ht 162.6 cm; Wt 74.3 kg
[~2023-10-22 14:01] MED LIST changes: +LACT10SO10 PO
[2023-10-22 14:34] LABS: BASOPHILS % (AUTO) 0.9 % (0.0-2.0); EOSINOPHILS % (AUTO) 1.6 % (1.0-6.0); HEMATOCRIT 29.4 % (41-53); HEMOGLOBIN 9.6 g/dL (13.5-17.5); LYMPHOCYTES # (AUTO) 0.6 K/uL (1.0-4.8); LYMPHOCYTES % (AUTO) 8.8 % (22.0-44.0); MEAN CORPUSCULAR HEMOGLOBIN 30.3 pg (26.0-34.0); MEAN CORPUSCULAR HGB CONC 32.5 G/dL (31.0-37.0); MEAN CORPUSCULAR VOLUME 93 fL (80-100); MONOCYTES # (AUTO) 0.5 K/uL (0.1-1.0); MONOCYTES % (AUTO) 6.9 % (2.0-9.0); NEUTROPHILS # (AUTO) 5.4 K/uL (1.8-7.7); NEUTROPHILS % (AUTO) 81.8 % (40.0-70.0); PLATELET COUNT (AUTO) 143 K/uL (150-450); RED BLOOD CELL COUNT(AUTO) 3.16 MIL/uL (4.50-5.90); RED CELL DISTRIBUTION WIDTH 15.7 % (11.5-14.5); WHITE BLOOD COUNT (AUTO) 6.6 K/uL (4.5-11.0)
[2023-10-22 14:41] LABS: CALCIUM, TOTAL 9.1 mg/dL (8.8-10.5); CREATININE 11.87 mg/dL (0.60-1.30); POTASSIUM 4.5 mmol/L (3.5-5.1)
[2023-10-22 14:47] LABS: TROPONIN I-HIGH SENSITIVITY 47 ng/L (<76)
[2023-10-22] MEDS: ONDANSETRON HCL 4 MG/2 ML VIAL IVP ONE (15:20)
[2023-10-22] MEDS: HydrALAZINE HCL 20 MG/ML VIAL IVP ONE ×2 (15:20→17:57)
[2023-10-22] MEDS: MORPHINE SULFATE 4 MG/ML SYRINGE IVP ONE ×2 (15:20→19:52)
[2023-10-22] MEDS: NITROGLYCERIN 2% (1 GM=INCH) OINTMENT PACKET TP ONE (15:21)
[2023-10-22] MEDS: CloNIDine HCL 0.1 MG TABLET PO ONE (16:35)
[2023-10-22] MEDS: LABETALOL HCL 5 MG/ML 20 ML VIAL IVP ONE (16:35)
[2023-10-22] MEDS: LOSARTAN POTASSIUM 50 MG TABLET PO ONE (17:57)
[2023-10-22] MEDS: NIFEdipine 60 MG ER TABLET PO ONE (18:34)
[2023-10-22] MEDS: NiCARDipine HCL 25 MG in DEXTROSE 5%-WATER 240 ML IV PRN (18:34)
[2023-10-22] MEDS ORDERED: MORPHINE SULFATE 4 MG/ML SYRINGE IVP ONE (19:45)
[2023-10-22] MEDS ORDERED: LACTULOSE 20 GM/30 ML SOLUTION UDCUP PO PRN (20:00)
[2023-10-22] MEDS ORDERED: ACETAMINOPHEN 325 MG TABLET PO PRN (20:00)
[2023-10-22] MEDS ORDERED: ONDANSETRON HCL 4 MG/2 ML VIAL IVP PRN (20:00)
[2023-10-22] MEDS ORDERED: POLYETHYLENE GLYCOL 3350 17 GM PACKET PO PRN (20:15)
[2023-10-22] MEDS: TERAZOSIN HCL 2 MG CAPSULE PO SCH (20:21)
[2023-10-22] MEDS: HydrALAZINE HCL 50 MG TABLET PO SCH (20:52)
[2023-10-22] MEDS: CARVEDILOL 25 MG TABLET PO SCH (20:52)
[2023-10-22] MEDS: APIXABAN 2.5 MG TABLET PO SCH (20:53)
[2023-10-22 21:00] VITALS: BP 182/91; PULSE 63; RESP 18; TEMP 98
[2023-10-22] MEDS: DOCUSATE SODIUM 100 MG CAPSULE PO SCH (21:00)
[2023-10-22 23:16] LABS: GLUCOMETER DEV NAME(LOC) 5N.1D; GLUCOSE,POINT OF CARE 85 MG/DL (70-110)
[2023-10-22] MEDS: NITROGLYCERIN 2% (1 GM=INCH) OINTMENT PACKET TP SCH (23:28)
[2023-10-22 23:51] VITALS: BP 151/82; PULSE 64; RESP 18; TEMP 98
[2023-10-23] VITALS (15 sets, daily range): BP systolic 149–193; BP diastolic 61–106; PULSE 58–68; RESP 17–20; TEMP 97.4–98.2
[2023-10-23] MEDS ORDERED: HEPARIN SODIUM,PORCINE 5,000 UNITS/ML VIAL SQ SCH
[2023-10-23 07:06] LABS: BASOPHILS % (AUTO) 0.8 % (0.0-2.0); EOSINOPHILS % (AUTO) 2.5 % (1.0-6.0); HEMATOCRIT 27.9 % (41-53); HEMOGLOBIN 9.1 g/dL (13.5-17.5); LYMPHOCYTES # (AUTO) 0.6 K/uL (1.0-4.8); LYMPHOCYTES % (AUTO) 9.2 % (22.0-44.0); MEAN CORPUSCULAR HEMOGLOBIN 30.5 pg (26.0-34.0); MEAN CORPUSCULAR HGB CONC 32.8 G/dL (31.0-37.0); MEAN CORPUSCULAR VOLUME 93 fL (80-100); MONOCYTES # (AUTO) 0.7 K/uL (0.1-1.0); MONOCYTES % (AUTO) 10.6 % (2.0-9.0); NEUTROPHILS # (AUTO) 4.9 K/uL (1.8-7.7); NEUTROPHILS % (AUTO) 76.9 % (40.0-70.0); PLATELET COUNT (AUTO) 116 K/uL (150-450); RED BLOOD CELL COUNT(AUTO) 2.99 MIL/uL (4.50-5.90); RED CELL DISTRIBUTION WIDTH 15.6 % (11.5-14.5); WHITE BLOOD COUNT (AUTO) 6.3 K/uL (4.5-11.0)
[2023-10-23 07:20] LABS: CALCIUM, TOTAL 8.8 mg/dL (8.8-10.5); CREATININE 13.2 mg/dL (0.60-1.30); MAGNESIUM 2.6 mg/dL (1.80-2.40); POTASSIUM 4.5 mmol/L (3.5-5.1)
[2023-10-23] MEDS: FOLIC ACID/VIT B COMPLEX AND C TABLET PO SCH (08:27)
[2023-10-23] MEDS: NIFEdipine 60 MG ER TABLET PO SCH (08:27)
[2023-10-23] MEDS: ASPIRIN 81 MG DR TABLET PO SCH (08:27)
[2023-10-23] MEDS: LOSARTAN POTASSIUM 50 MG TABLET PO SCH (08:28)
[2023-10-23] MEDS ORDERED: SODIUM CHLORIDE 0.9% 1,000 ML ONE (15:36)
[2023-10-23] MEDS: HydrALAZINE HCL 20 MG/ML VIAL IVP PRN (19:21)
[2023-10-23] MEDS: OxyCODONE HCL/ACETAMINOPHEN 10-325 MG TABLET PO PRN (20:17)
[2023-10-24] MEDS: HydrALAZINE HCL 20 MG/ML VIAL IVP ONE (00:25)
[2023-10-24 01:22] VITALS: BP 164/89; RESP 18
[2023-10-24 05:08] LABS: HEPATITIS C AB (EIA) Non Reactive (Non Reactive)
[2023-10-24 05:27] VITALS: BP 159/87; PULSE 67; RESP 7; TEMP 98.1
[2023-10-24 08:46] VITALS: BP 170/90; PULSE 74; RESP 19; TEMP 98
[2023-10-24 10:47] VITALS: BP 165/85; PULSE 68; RESP 18; TEMP 98.2
[2023-10-24 13:44] VITALS: BP 149/82; PULSE 62; RESP 16; TEMP 98
[2023-10-24 14:59] LABS: APPEARANCE,URINE CLEAR (CLEAR); BILIRUBIN,URINE NEGATIVE (NEGATIVE); COLOR,URINE LIGHT YELLOW (YELLOW); GLUCOSE, URINE (UA) NEGATIVE (NEGATIVE); KETONES,URINE NEGATIVE (NEGATIVE); LEUKOCYTE ESTERASE ,URINE NEGATIVE (NEGATIVE); NITRATE,URINE NEGATIVE (NEGATIVE); OCCULT BLOOD,URINE NEGATIVE (NEGATIVE); PH,URINE 7.5 (5.0-8.0); PROTEIN,URINE NEGATIVE (NEGATIVE); SPECIFIC GRAVITIY, URINE 1.016 (1.003-1.030); UROBILINOGEN,URINE <=1.0 mg/dL (<=1.0)
[2023-10-24 17:02] VITALS: BP 145/79; PULSE 69; RESP 16; TEMP 97.8
== END 2023-10-24 18:10 | disposition home or self-care (01) | DRG 199 ==
LOC: EMS 14:01 → EDH 20:07 → 5S 21:01
PROVIDERS: ADMIT Internal Medicine; ATTEND Internal Medicine
PROC: 5A1D70Z Performance of Urinary Filtration, Intermittent, Less than 6 Hours Per Day (ICD-10-PCS; principal; 2023-10-23)
DX: I16.0 Hypertensive urgency (principal); N18.6 End stage renal disease; Z99.2 Dependence on renal dialysis; D64.9 Anemia, unspecified; E21.3 Hyperparathyroidism, unspecified; I12.0 Hypertensive chronic kidney disease with stage 5 chronic kidney disease or end stage renal disease; K59.03 Drug induced constipation; T40.605A Adverse effect of unspecified narcotics, initial encounter; Z79.01 Long term (current) use of anticoagulants; Z79.82 Long term (current) use of aspirin; Z79.899 Other long term (current) drug therapy; Z91.148 Patient's other noncompliance with medication regimen for other reason; Y92.89 Other specified places as the place of occurrence of the external cause
CPT/HCPCS: 70450; 71045; 74176; 80048; 81003; 82962; 83690; 83735; 84484; 85025; 86803; 87081; 87340; 90935; 93005; 99285; J0360; J2270; J2405; J3490; J7030; J7060; 36415-L1; 36415-TC